=== PATIENT | female | born 1975 ===

== ENCOUNTER → 2020-12-29 17:07 | Outpatient (CLI) | payer OTHER, SELFPAY ==
--- NOTE | ~2020-12-29 | MM_ITS ---
EXAMINATION: MM screening dxe BI w josi HISTORY: Screening mammogram TECHNIQUE: Craniocaudal and mediolateral oblique 3-D tomosynthesis images were obtained and synthetic 2-D images were generated. CAD analysis was submitted and interpreted. COMPARISON: 05/15/2017 bilateral digital screening mammogram 05/16/2016 bilateral diagnostic digital mammogram 05/09/2016 bilateral digital screening mammogram BREAST PARENCHYMAL COMPOSITION: There are scattered areas of fibroglandular density. FINDINGS: Stable benign intramammary lymph nodes are noted on the right. There is no evidence of susp icious mass, calcification, or architectural distortion to suggest malignancy in either breast. There has been no suspicious interval change. IMPRESSION: 1. No mammographic evidence of malignancy. 2. Recommend routine screening mammography in one year. BI-RADS Category 2: Benign finding(s). Reviewed, dictated and finalized at location A.
== END ==
PROVIDERS: PCP Emergency Medicine; Visit Provider Emergency Medicine
DX: Z12.31 Encounter for screening mammogram for malignant neoplasm of breast (principal)
CPT/HCPCS: 77063; 77067

== ENCOUNTER 2025-03-06 08:57 | Emergency (ER) | payer OTHER, SELFPAY ==
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
--- OUTSIDE RECORDS SUMMARY | 2025-03-06 09:02 | XMS_ITS | Encounter Summary ---
Author Organization [facility] Healthcare Address [address] [place] [address] Care Team Providers Care Bedspread Cutter Hand Name Role Phone Ignacia Moran MD Primary Care Provi didier Encounter Details Date Type Department Care Team (Latest Contact Info) Description 01/14/2025 Results Follow-Up [facility] [address] [place] [address] Ghada Madison MD [address] [id number] CBC without differential Social History Tobacco Use Types Packs/Day Years Used Date Smoking Tobacco: Never Smokeless Tobacco: Never AUDIT-C Answer Date Recorded Q1: How often do you have a drink containing alcohol? Never 12/14/2024 Q2: How many drinks containi ng alcohol do you have on a typical day when you are drinking? Patient does not drink Q3: How often do you have si x or more drinks on one occasion? Never 12/14/2024 Personal Safety Answer Date Recorded Have you ever been in or are you currently in a harmful physical or emotional relationship or is someone making you feel afraid or unsafe? Denies 12/14/2024 Comments No Sex and Gender Information Value Date Recorded Sex Assigned at Not on file Legal Sex Female 6:56 PM [employer] Gender Identity Not on file Sexual Orientation Not on file documented as of this encounter Plan of Treatment Not on file documented as of this encounter Visit Diagnoses Not on filedocumented in this encounter Care Teams Bedspread Cutter Hand Relationship Specialty Start Date End Date Ignacia Moran MD PCP - General Family Medicine 04/14/22 documented as of this encounter
--- OUTSIDE RECORDS SUMMARY | 2025-03-06 09:02 | XMS_ITS | Encounter Summary ---
Author Organization [facility] Healthcare Address [address] [place] [address] Care Team Providers Care Assistant Community Director Name Role Phone Sophia Mai MD Primary Care Provider [phone] Reason for Visit * Diagnostic Imaging (Routine) - Pending Review Specialty Diagnoses / Procedures Referred By Makayla sahu Referred To Contact Procedures Breast Imaging Screening Outside Reference Transcribed Order, Provider Referral ID Status Reason Start Date Expiration Date V isits Requested Visits Authorized [id number] Pending Review 06/27/2024 07/27/2025 1 1 Encounter Details Date Type Department Care Team (Late st Contact Info) Description 12/29/2020 Hospital Encounter [facility] [address] [place], [place] [id number] Social History Tobacco Use Types Packs/Day Years [...] on file Legal Sex Female 6:56 PM [employer] Gender Identity Not on file Sexual Orientation Not on file documented as of this encounter Functional Status * Audit-C Score Answer Date of Assessment Author 0 12/14/2024 7:12 PM CDT Davonte Stewart RN * Question Answer Date of Assessment Author Q1: How often do you have a drink containing alcohol? Never 12/14/2024 7:12 PM CDT Shanti Stewart RN Q2: How many drinks containing alcohol do you have on a typical day when you are drinking? Patient does not drink 12/14/2024 7:12 PM CDT Shanti Stewart RN Q3: How often do you have six or more drinks on one occasion? Never 12/14/2024 7:12 PM CDT Shanti Stewart RN documented as of this encounter Plan of Treatment Not on file documented as of this encounter Procedures Procedure Name Priority Date/Time Associated Diagnosis Comments BREAST IMAGING MG SCREENING OUTSIDE REFERENCE Routine 12/29/2020 12:00 AM CDT documented in this encounter Results * Breast Imaging Screening Outside Reference (12/29/2020 12:00 AM CDT) Impressions [facility] - 06/27/2024 9:22 AM [employer] These images are for Reference purposes only and have not been reviewed by [facility] Radiology. There will be no report generated by a [facility] Radiologist. Narrative [facility] - 06/27/2024 9:22 AM [employer] EXAMINATION: Images For Reference Purposes Only us Provider Transcribed Order IMG MAMMO PROCEDURES Final Result [facility] documented in this encounter Visit Diagnoses Not on filedocumented in this encounter Additional Health Concerns Infection Onset Date Last Indicated Resolved Time COVID: Suspected 02/07/2022 02/07/2022 02/08/2022 3:05 AM CDT COVID: Suspected 02/07/2022 02/07/2022 02/08/2022 5:11 AM CDT COVID19 02/07/2022 02/07/2022 02/17/2022 3:05 AM CDT COVID: Recovered Comment:Added based on recent COVID infection. 02/17/2022 04/18/2022 06/17/2022 3:[address] documented as of this encounter Care Teams Assistant Community Director Relationship Specialty Start Date End Date Sophia Mai MD [address] [place] [address] PCP - General Internal Medicine 04/30/19 02/06/22 documented as of this encounter
--- OUTSIDE RECORDS SUMMARY | 2025-03-06 09:02 | XMS_ITS | Continuity of Care Document ---
Author Organization [facility] Address [address] [facility] [place] [address] [place] [address] Phone Care Team Providers Care Mechanical Integrity Specialist Name Role Phone Jaxon Collins MD Unavailable Unavailable Allergies, Adverse Reactions, Alerts Substance Reaction Status Criticality No Known Allergies Active No Inform ation Medications Medication Instructions Dosage Effective Dates (start - stop) Status Comments levofloxacin 250 mg tablet take 1 tablet by oral route every day 250 MG - Active phentermine 37.5 mg tablet take 1 tablet by oral route every day before breakfast 37.5 MG - Active Procedures Procedure Date OFFICE/OUTPATIENT VISIT, [facility] PREV VISIT, NEW, AGE 40-64 OFFICE/OUTPATIENT VISIT, [facility] Advance Directives Directive Yes / No Effective Date File Name No Information Encounters Encounter Description Practice Location Reason(s) For Visit Diagnoses Date Provider Providers Copied on Encounter [facility], [address] [employer] [place], [place], [id number], tel:[phone] [facility] Urinary tract infection Dennis Coates. [address], [place], [place], [id number] , [place]. tel:[phone] OFFICE/OUTPA TIENT VISIT, EST [facility], [address] [employer] [place], [place], [id number], tel:[phone] [facility] Medicine UTI1 (chief complaint) HTN (chief complaint) weight gain1 (chief complaint) Essential (primary) hypertensionAbnorma l weight gainUrinary tract infectionEncounter for oth screening for malignant neoplasm of breast 1 Dennis Coates. [address], [place], [place], [id number] , [place]. tel:[phone] PREV VISIT, NEW, AGE 40-64 [facility], [address], [place], [place], [id number], [place] tel:[phone] [facility] Medicine physical (chief complaint) Encounter for general adult medical exam w abnormal findingsEssential (primary) hypertensionAbnorma l weight gain 1 Dennis Coates. [address], [place], [place], [id number] , [place]. tel:[phone] Family History Family Member Type Diagnosis Age At Onset Mother Problem Obesity Brother Problem Alive and well Mother Problem Alive and well Father Problem prostate CA 70s Payers Payer name Insurance type Covered republican ID Authoriza tion(s) No Information Social History Type Description Quantity Date Captured Comments Alcohol Use Details Unknown Caffeine Use Details Unknown Tobacco Use Status No Information Smoking Status No Information Sex Female Chief Complaint And Reason For Visit No Information Plan Of Treatment Date Type Action Status Referral Ordered: MAMMOGRAM, SCREENING ordered History Of Present Illness Encounter Date Complaint History Of Prese nt Illness weight gain1 Pt is obese Pt f josef diet and exercise. Pt started biking recently. HTN Pt has not been checking her BP at home. Pt does have BP cuff at home .Pt denies any chest pain or headache. Pt has been diet and exercising. UTI1 Pt denies any dy suria. Pt feels urinary urgency without frequency. pt notices cloudy urine as well. Pt does drink a lot of water Pt denies any pelvic pain or flank pain physical Pt needs annual physical. 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 Pt is updated with all her shot. Pt has history of HTN and she took BP meds for a while but she stopped taking it on her own several years ago. Pt denies any chest pain or headache. her bp is borderline high today. Pt also gained tons of weight during the last several years. Pt has tried diet and exercise but unable to lose weight. Pt denies any other complaints Instructions Date Instruction Additional Infor ravindra No Information Assessments Type Assessment Date assessment Urinary tract infection
--- OUTSIDE RECORDS SUMMARY | 2025-03-06 09:02 | XMS_ITS | Clinical Summary ---
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 Name Role Phone Ignacia Moran MD Primary Care Provi didier Allergies Active Allergy Reactions Criticality Noted Date Comments Lisinopril Angioedema High 01/28/2023 Medications hydroCHLOROthiazid e (HYDRODIURIL) 25 mg tablet Take 1 tablet (25 mg total) by mouth daily 90 tablet 10/28/19 25 Active ibuprofen (ADVIL,MOTRIN) 600 mg tablet Take 1 tablet (600 mg total) by mouth every 6 (six) hours as needed for pain 30 tablet 12/05/19 25 Active Additional Information Patient not taking.Reported on 12/30/2024 polyethylene glycol (MIRALAX) 17 gram/dose bulk powder Take 17 g by mouth daily 510 g 12/05/19 25 Active Additional Information Patient not taking.Reported on 12/30/2024 ondansetron ODT (ZOFRAN-ODT) 4 mg disintegrating tablet Take 1 tablet (4 mg total) by mouth every 8 (eight) hours as needed for nausea or vomiting 5 tablet 12/05/19 25 Active Additional Information Patient not taking.Reported on 12/30/2024 polyethylene glycol (MIRALAX) 17 gram/dose bulk powder Take 17 g by mouth daily 255 g 12/14/19 25 Active Additional Information Patient not taking.Reported on 12/30/2024 acetaminophen 500 mg capsuleIndications :Fever,Pain Take 2 capsules (1,000 mg total) by mouth every 6 (six) hours 180 tablet 12/18/19 25 Active Additional Information Patient not taking.Reported on 12/30/2024 bisacodyL (DULCOLAX) 10 mg suppositoryIndicat ions:constipation Insert 1 suppository (10 mg total) into the rectum daily 12 suppository 12/18/19 25 Active Additional Information Patient not taking.Reported on 12/30/2024 oxyCODONE (ROXICODONE) 5 mg immediate release tabletIndications: Pain Take 1 tablet (5 mg total) by mouth every 4 (four) hours as needed for pain 15 tablet 12/18/19 25 Active Additional Information Patient not taking.Reported on 12/30/2024 polyethylene glycol (MIRALAX) 17 gram/dose bulk powderIndications: constipation Take 17 g by mouth daily 595 g 12/18/19 25 Active Additional Information Patient not taking.Reported on 12/30/2024 bisacodyl EC (DULCOLAX EC) 5 mg EC tabletIndications: constipation Take 1 tablet (5 mg total) by mouth daily 30 tablet 12/18/19 25 Active Additional Information Patient not taking.Reported on 12/30/2024 cyclobenzaprine (FLEXERIL) 5 mg tablet Take 1 tablet (5 mg total) by mouth 3 (three) times a day as needed for muscle spasms 30 tablet 12/18/19 25 Active Additional Information Patient not taking.Reported on 12/30/2024 gabapentin (NEURONTIN) 100 mg capsule Take 1 capsule (100 mg total) by mouth 3 (three) times a day 90 capsule 11 12/18/19 25 026 Active Additional Information Patient not taking.Reported on 12/30/2024 methocarbamoL (ROBAXIN) 500 mg tablet Take 1 tablet (500 mg total) by mouth 3 (three) times a day 30 tablet 12/18/19 25 Active Additional Information Patient not taking.Reported on 12/30/2024 ondansetron ODT (ZOFRAN-ODT) 4 mg disintegrating tabletIndications: Nausea and Vomiting Take 1 tablet (4 mg total) by mouth every 6 (six) hours as needed for nausea or vomiting 20 tablet 12/18/19 25 Active Additional Information Patient not taking.Reported on 12/30/2024 simethicone (MYLICON) 80 mg chewable tablet Take 1 tablet (80 mg total) by mouth 2 (two) times a day as needed for flatulence 30 tablet 12/18/19 25 Active Additional Information Patient not taking.Reported on 12/30/2024 Active Problems Problem Noted Date Diagnosed Date Vaginal cuff cellulitis 12/15/2024 Assessment & Plan (02/05/2025 5:37 PM CDT): Cuff well healed on exam today. Discussed continuing pelvic rest for 3 months total (through March). Return to work signed today. Patient will call if any issues or concerns, otherwise will plan to follow-up for routine WWE. All questions answered. Assessment & Plan (01/17/2025 5:02 PM CDT): Discussed repeat course of antibiotics considering small fluid collection at cuff on imaging and mild tenderness to palpation of cuff on exam, although overall cuff appears to be improving and patient's symptoms have been moving in the right direction. CTX administered in clinic today, and doxy/flagyl x 2 weeks sent to pharmacy. Plan for CBC today to evaluate for leukocytosis. Reviewed signs of worsening infection, otherwise will plan on following up for next appt scheduled 02/04. Plan for extended pelvic rest (3 mths) considering clinical course. Post-operative state 12/14/2024 Vaginal cuff dehiscence, initial encounter 12/14 Adenomyosis 08/20/2024 Abnormal uterine bleeding 07/02/2024 Assessment & Plan (10/20/2024 5:55 PM CDT): - Discussed that abnormal uterine bleeding and pain with menses likely in the setting of adenomyosis seen on pelvic US - TVUS 08/20: Uterus with a small fundal myoma and features suggesting adenomyosis, endometrial thickness measuring 6.4 mm, normal ovaries (R with corpus luteum) - Endometrial biopsy with benign endocervical mucosa, strips of unremarkable endocervical and squamous epithelium, insufficient endometrium for analysis but no evidence of dysplasia or malignancy. - TSH, prolactin within normal limits - Pap with +HRHPV non16/18, normal cytology Lab Results Component Value Date HGB 13.1 01/28/2023 - Previously reviewed the risks and benefits of medical management (hormonal contraception, TXA, NSAIDs) vs surgical management - Patient interested in hysterectomy for definitive management. Discussed would be a candidate for laparoscopic approach considering size of uterus. Discussed risks, benefits, alternatives, recovery expectations. All patient questions answered. - Discussed insufficient pathology from endometrial biopsy. Discussed overall, risk of malignancy is low considering risk factors and thin endometrial stripe on US, but cannot be excluded. Discussed option of repeat sampling for additional reassurance. Patient desires to defer additional sampling at this time as first biopsy was extremely uncomfortable. 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 Discussed would avoid LUQ entry, otherwise approach should be the same. Assessment & Plan (08/25/2024 1:54 PM CARTRIDGE GAUGER): - Discussed that abnormal uterine bleeding and pain with menses likely in the setting of adenomyosis seen on US today - TVUS 08/20: Uterus with a small fundal myoma and features suggesting adenomyosis, endometrial thickness measuring 6.4 mm, normal ovaries (R with corpus luteum) - Endometrial biopsy obtained today - TSH, prolactin within normal limits - Pap with +HRHPV non16/18, normal cytology Lab Results Component Value Date HGB 13.1 01/28/2023 - Previously reviewed the risks and benefits of medical management (hormonal contraception, TXA, NSAIDs) vs surgical management - Patient previously interested in ablation, although having both pain and bleeding symptoms from adenomyosis. Discussed that ablation may not help with pain symptoms. Now interested in hysterectomy for definitive management. Discussed would be a candidate for laparoscopic approach considering size of uterus. Discussed risks, benefits, alternatives, recovery expectations. 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) noted at time of bariatric surgery Assessment & Plan (07/02/2024 5:49 PM CARTRIDGE GAUGER): Abnormal uterine bleeding: - We discussed that cycles more often that 21 days or less is considered abnormal - Reviewed potential causes of AUB, specifically structural causes (polyps, adenomyosis, leiomyomas), malignancy, coagulopathies, ovulatory disorders, endometrial abnormalities, iatrogenic reasons - Workup recommended including TVUS, EMB, labwork - TVUS ordered - Endometrial biopsy: discussed obtaining at next visit - TSH, prolactin ordered - Pap obtained today Lab Results Component Value Date HGB 13.1 01/28/2023 - Reviewed the risks and benefits of medical management (hormonal contraception, TXA, NSAIDs) vs surgical management - Patient prefers to proceed with Aygestin 5mg daily, with further discussion of management pending TVUS and biopsy results. She is ultimately interested in an endometrial ablation. Morbid (severe) obesity due to excess calories 1 08/27/2021 No diagnosis on [place] I 05/25/2022 Morbid obesity 05/25/2022 GERD (gastroesophageal reflux disease) Primary hypertension 05/01/2022 Primary osteoarthritis of both knees 05/01/2022 BMI 45.0-49.9, adult 04/21/2022 Encounters Date Type Department Care Team Description 02/04/2025 3:45 PM CDT Office Visit [facility] Obstetrics and Gynecology [address] [place] [address] 7th Floor [address] [place] [phone] Ghada Madison MD Vaginal cuff cellulitis (Primary Dx) 01/14/2025 1:05 PM CDT Lab [facility] [address] [place] [id number] Vaginal cuff cellulitis; Abnormal uterine bleeding 01/14/2025 12:15 PM CDT Office Visit [facility] Obstetrics and Gynecology [address] [place] [address] 7th Floor [address] [place] [phone] Ghada Madison MD Vaginal cuff cellulitis (Primary Dx) 01/14/2025 Results Follow-Up [address] [phone] Ghada Madison MD CBC without differential 01/13/[address] [phone] Ghada Madison MD 01/13/2025 Results Follow-Up [address] [place] [address] Pelvis W Contrast 01/12/2025 3:24 PM CDT - 01/12/2025 11:59 PM CDT Hospital Encounter [facility] [address] [place] [address] Post-operative state; Pelvic pain Discharge Disposition: Discharge to home or self care 01/06/2025 Orders Only [facility] Obstetrics and Gynecology [address] [place] [address] 7th Floor [address] [place] [address] Ghada Madison MD Post-operative state (Primary Dx); Pelvic pain 12/30/2024 12:45 PM CDT Office Visit [facility] Obstetrics and Gynecology [address] [place] [address] 7th Floor [address] [place] [address] Ghada Madison MD Post-operative state (Primary Dx) 12/23/2024 Telephone [facility] Obstetrics and Gynecology [address] [place] [address] 7th [address] [place] [address] Alonso Lugo, CASSIDY Appointment 12/18/2024 Results Follow-Up [address] [phone] Ghada Madison MD Aerobic and anaerobic culture and gram stain Abscess Vaginal 12/14/2024 10:14 PM CDT Anesthesia Event [facility] Operating Room [address] [place] [address] Shirlene Becker MD Gillespie, Julie Beth Marie, MD 12/14/2024 8:00 PM CDT - 12/14/2024 10:15 PM CDT Surgery [facility] Operating Room [address] [place] [address] Ghada Madison MD EXAM UNDER ANESTHESIA WITH VAGINAL CUFF REPAIR 12/14/2024 12:07 PM CDT - 12/17/2024 2:51 PM CDT Hospital Encounter [facility] [address] [place] [address] Rebeca Atkins MD Mitchell, Nicky Singh MD Vaginal cuff dehiscence, initial encounter (Primary Dx); Post-operative state Discharge Disposition: Discharge to home or self care 12/12/2024 5:34 PM CDT - 12/13/2024 1:10 AM CDT Hospital Encounter [facility] [address] [place] [address] Ghada Madison MD Abnormal uterine bleeding (Primary Dx) Discharge Disposition: Discharge to home or self care 12/12/2024 Telephone [facility] Obstetrics and Gynecology [facility] 7th Floor [address] [place] [address] Alonso Lugo RN Post-op 12/04/2024 11:16 AM CDT Anesthesia Event [facility] Operating Room [address] [place] [address] Sayda Lao DO Montgomery, Andrea J., NP 12/04/2024 11:00 AM CDT - 12/04/2024 3:10 PM CDT Surgery [facility] Operating Room [address] [place] [address] Ghada Madison MD LAPAROSCOPIC TOTAL HYSTERECTOMY 12/04/2024 9:07 AM CDT - 12/04/2024 6:58 PM CDT Hospital Encounter [facility] Operating Room [address] [place] [address] Ghada Madison MD Abnormal uterine bleeding; Adenomyosis Discharge Disposition: Discharge to home or self care from Last 3 Months Immunizations Immunization Administration Dates Next Due Hep B Vaccine 05/30/2021,12/03/2020,10/29/2020 Influenza, Quadrivalent, Spl it, Intramuscular 10/29/2020 Influenza, Trivalent, IM (MDV) 05/30/2021 Influenza, Trivalent, Preser vative Free, Intramuscular 05/05/2024 MMR 12/03/2020,10/29/2020 PPD TEST 05/05/2024,07/09/2023,10/03/2022 Tdap 10/29/2020 Varicella 12/03/2020,10/29/2020 Surgical History Surgery Date Site/Laterality Comments DILATION AND CURETTAGE OF UTERUS APPENDECTOMY 06/27 ABDOMINAL SURGERY 06/27 Gastric Sleeve LAPAROSCOPIC HYSTERECTOMY HYSTERECTOMY Medical History Medical History Date Comments Arthritis 2019 GERD (gastroesophageal reflux disease) 2015 Morbid obesity (HCC) 2012 Obesity 2004 Hypertension Family History Medical History Relation Name Comments Gout Father Hypertension Mother Anesthesia problems Neg Hx Relation Name Status Comments Father Mother Social History Tobacco Use Types Packs/Day Years Used Date Smoking Tobacco: Never Smokeless Tobacco: Never Tobacco Cessation:Counseling Given: Not Answered AUDIT-C Answer Date Recorded Q1: How often [...] on file Legal Sex Female 6:56 PM CARTRIDGE GAUGER Gender Identity Not on file Sexual Orientation Not on file Obstetrics History Para Term AB IAB SAB Ectopic Multiple Livin g Live Births 2 2 2 2 2 Date Outcome GA Total Labor Labor/2nd/3rd Weight Sex Type Anes PTL Monica A1 A5 Name Clin 2003 Term 37w 0d M Vagina l Livin g Complications:High blood pre ssure 2007 Term 37w 0d M Vagina l Livin g Complications:High blood pre ssure Last Filed Vital Signs Vital Sign Reading Time Taken Comments Blood Pressure 156/106 02/04/2025 3:33 PM CDT Pulse 71 01/14/2025 12:18 PM CDT Temperature 36.8 C (98.3 F) 01/14/2025 12:18 PM CDT Respiratory Rate 18 12/17/2024 8:10 AM CDT Oxygen Saturation 98% 12/17/2024 8:10 AM CDT Inhaled Oxygen Concentration - - Weight 90.8 kg (200 lb 3.2 oz) 02/04/2025 3:33 P M CDT Height 165.1 cm (5' 5) 02/04/2025 3:33 PM CDT Body Mass Index 33.32 02/04/2025 3:33 PM CDT Plan of Treatment Health Maintenance Due Date Last Done Comments Colon Cancer Screening-Colonoscopy 1977 Depression Screening 1977 Hepatitis C Screening 1977 Regular Well Visit/Exam 18-64 1995 Covid-19 Vaccine (2 - season) 2024 10/14/2020 Influenza Vaccine (#1) 2025 , 05/30/2021, 10/29/2020 Breast Cancer Screening-Mammogram 07/17/2025 07/17/2024, 12/29/2020 DTaP/Tdap/Td Vaccine (2 - Td or Tdap) 10/29/2030 10/29/2020 Hepatitis B Screening Completed 05/30/2021 , 12/03/2020, 10/29/2020 Cervical Cancer Screening Discontinued 2023, 07/02/2024 Pneumococcal vaccine <65 Aged Out No longer eligible based on patient's age to complete this topic Procedures Procedure Name Priority Date/Time Associated Diagnosis Comments EGFR Routine 01/14/2025 1:09 PM CDT Abnormal uterine bleeding COMPREHENSIVE METABOLIC PANEL Routine 01/14/2025 1:09 PM CDT Abnormal uterine bleeding CBC WITHOUT DIFFERENTIAL Routine 01/14/2025 1:09 PM CDT Vaginal cuff cellulitis CT PELVIS W CONTRAST Schedule Routine, Read Routine (OP Routine) 01/12/2025 3:52 PM CDT Post-operative state Pelvic pain EGFR Routine 12/17/2024 5:48 AM CDT COMPREHENSIVE METABOLIC PANEL Routine 12/17/2024 5:48 AM CDT CBC WITHOUT DIFFERENTIAL Routine 12/17/2024 5:48 AM CDT EGFR Routine 12/16/2024 4:46 AM CDT COMPREHENSIVE METABOLIC PANEL Routine 12/16/2024 4:46 AM CDT CBC WITHOUT DIFFERENTIAL Routine 12/16/2024 4:46 AM CDT US RENAL LIMITED IP Routine 12/15/2024 3:57 PM CDT EGFR Routine 12/15/2024 4:49 AM CDT COMPREHENSIVE METABOLIC PANEL Routine 12/15/2024 4:49 AM CDT CBC WITHOUT DIFFERENTIAL Routine 12/15/2024 4:49 AM CDT AEROBIC AND ANAEROBIC CULTURE AND GRAM STAIN Routine 12/14/2024 11:20 PM CDT EXAM UNDER ANESTHESIA 12/14/2024 10:16 PM CDT Vaginal cuff dehiscence, initial encounter BLOOD CULTURE STAT 12/14/2024 5:08 PM CDT BLOOD CULTURE STAT 12/14/2024 5:08 PM CDT URINALYSIS, MICROSCOPIC ONLY Routine 12/14/2024 3:34 PM CDT URINALYSIS AND REFLEX TO MICROSCOPIC AND CULTURE Routine 12/14/2024 3:34 PM CDT EGFR Timed 12/14/2024 1:39 PM CDT LACTATE Timed 12/14/2024 1:39 PM CDT COMPREHENSIVE METABOLIC PANEL Timed 12/14/2024 1:39 PM CDT CBC WITHOUT DIFFERENTIAL Timed 12/14/2024 1:39 PM CDT TYPE AND SCREEN Timed 12/14/2024 1:[address] CHEST PE ABDOMEN PELVIS W CONTRAST ED Urgent/IP Urgent 12/12/2024 9:46 PM CDT HEPATIC FUNCTION PANEL Routine 12/12/2024 7:32 PM CDT EGFR Routine 12/12/2024 7:32 PM CDT BASIC METABOLIC PANEL Routine 12/12/2024 7:32 PM CDT CBC WITHOUT DIFFERENTIAL STAT 12/12/2024 7:32 PM CDT POCT URINALYSIS (CLINITEK) Routine 12/12/2024 6:01 PM CDT SURGICAL PATHOLOGY Routine 12/04/2024 1: 44 PM CDT Abnormal uterine bleeding Adenomyosis TX AN PROCEDURE PLACEHOLDER Routine 12/04/2024 11:51 AM CDT TX AN ELECTIVE ENDOTRACHEAL AIRWAY Routine 12/04/2024 11:51 AM CDT LAPAROSCOPIC URETEROLYSIS 12/04/2024 11:20 AM CDT Abnormal uterine bleeding Adenomyosis LAPAROSCOPIC EXCISION ENDOMETRIOSIS 12/04/2024 11:20 AM CDT Abnormal uterine bleeding Adenomyosis LAPAROSCOPIC EXCISION ENDOMETRIOSIS 12/04/2024 11:20 AM CDT Abnormal uterine bleeding Adenomyosis LAPAROSCOPIC URETEROLYSIS 12/04/2024 11:20 AM CDT Abnormal uterine bleeding Adenomyosis CYSTOSCOPY 12/04/2024 11:20 AM CDT Abnormal uterine bleeding Adenomyosis EXAM UNDER ANESTHESIA 12/04/2024 11:20 AM CDT Abnormal uterine bleeding Adenomyosis LAPAROSCOPIC SALPINGECTOMY 12/04/2024 11:20 AM CDT Abnormal uterine bleeding Adenomyosis LAPAROSCOPIC TOTAL HYSTERECTOMY 12/04/2024 11:20 AM CDT Abnormal uterine bleeding Adenomyosis TYPE AND SCREEN STAT 12/04/2024 9:57 AM CDT SCREENING MAMMOGRAM BILATERAL W SANTOS Schedule Routine, Read Routine (OP Routine) 07/17/2024 8:01 AM CARTRIDGE GAUGER Screening mammogram, encounter for HIGH RISK HPV DNA DETECTION WITH GENOTYPING Routine 07/02/2024 5:33 PM CARTRIDGE GAUGER Abnormal uterine bleeding from Last 3 Months or Most Recently Relevant to Health Maintenance Results * eGFR (01/14/2025 1:09 PM CDT) eGFR >90 >=60 mL/min/1. 73 m2 Comment: Interpretive Data Reference Interval Normal >/= 90 mL/min/1.73m2 Mildly decreased* 60 - 89 mL/min/1.73m2 Mildly to moderately decreased 45 - 59 mL/min/1.73m2 Moderately to severely decreased 30 - 44 mL/min/1.73m2 Severely decreased 15 - 29 mL/min/1.73m2 Kidney Failure < 15 mL/min/1.73m2 *Relative to young adult level Estimated glomerular filtration rate is determined by the 2020 CKD-EPI equation recommended by the National Kid[employer] (A Unifying Approach to GFR Estimation: Recommendations of the NKF-ASK Task Force on Reassessing the Inclusion of Race in Diagnosing Kidney Disease, JASN 2020). The CKD-EPI equation should not be used for patients with unstable renal function and has not been validated in children and those over 70. Current interpretive data was last reviewed 2021. Blood 01/14/2025 1:09 PM CDT 01/14/2025 1:38 PM CDT Ghada Madison MD LAB BLOOD ORDERABLES Final Re sult [facility] [place] [address] * CBC without differential (01/14/2025 1:09 PM CDT) WBC 4.42 3.80 - 9.90 K/cumm Hgb 12.2 11.9 - 15.5 g/dL [facility] Hct 36.0 35.6 - 45.5 % [facility] Plt 219 150 - 400 K/cumm [facility] MPV 10.0 9.1 - 12.3 fL [facility] RBC 4.28 3.90 - 5.20 M/cumm [facility] MCV 84.1 81.3 - 96.4 fL [facility] MCH 28.5 27.1 - 33.3 pg [facility] MCHC 33.9 32.3 - 35.7 g/dL [facility] RDW CV 14.6 11.1 - 14.9 % [facility] RDW SD 45.0 35.7 - 48.1 fL [facility] NRBC abs 0.00 0.00 - 0.01 K/cumm [facility] Blood 01/14/2025 1:09 PM CDT 01/14/2025 1:38 PM CDT Ghada Madison MD LAB BLOOD ORDERABLES Final Re sult [facility] [place] [address] * (ABNORMAL) Comprehensive metabolic panel (01/14/2025 1:09 PM CDT) Sodium 141 135 - 145 mmol/L Potassium, pl 4.1 3.3 - 4.9 mmol/L [facility] Chloride 107 97 - 110 mmol/L [facility] CO2 30 22 - 32 mmol/L [facility] Anion gap 4 2 - 15 mmol/L [facility] BUN 5(L) 6 - 25 mg/dL [facility] Creatinine 0.67 0.60 - 1.10 mg/dL [facility] Glucose 87 70 - 199 mg/dL [facility] Comment: Interpretive Data Fasting glucose >/= 126 mg/dl is diagnostic for diabetes. Fasting is defined as no caloric intake for at least 8 hours. Fasting glucose between 100 mg/dl to 125 mg/dl is diagnostic of prediabetes. In a patient with classic symptoms of hyperglycemia or hyperglycemic crisis, a random glucose >/= 200 mg/dl is diagnostic for diabetes. In the absence of unequivocal hyperglycemia, results should be confirmed by repeat testing. The classification and Diagnosis of Diabetes Diabetes Care 202; 46: S19-S40. Current interpretive data was last revised 2022. Calcium 9.5 8.5 - 10.3 mg/dL [facility] Bilirubin, total 0.5 0.1 - 1.2 mg/dL [facility] Protein, pl 7.6 6.5 - 8.5 g/dL [facility] Albumin 3.9 3.5 - 5.0 g/dL [facility] Alk phos 52 40 - 130 Units/L [facility] ALT 11 7 - 45 Units/L [facility] AST 14 10 - 45 Units/L [facility] Blood 01/14/2025 1:09 PM CDT 01/14/2025 1:38 PM CDT us Ghada Madison MD LAB BLOOD ORDERABLES Final Re sult [facility] [place] [address] * CT Pelvis W Contrast (01/12/2025 3:52 PM CDT) Anatomical Region Laterality Modality Body N/A Computed Tomogra phy 01/12/2025 4:04 PM CDT Impressions 01/12/2025 4:04 PM CDT Postsurgical changes of hysterectomy and bilateral salpingectomy with a peripherally enhancing 1.9 cm fluid collection at the leftward aspect of the vaginal cuff. There is interval resolution of small volume hemoperitoneum from 12/12/2024. Electronically signed by: Merissa Menon M.D. Narrative 01/12/2025 4:04 PM CDT EXAMINATION: CT PELVIS W CONTRAST HISTORY: 49-year-old with concern for cellulitis of the vaginal cuff. Patient status post hysterectomy and salpingectomy with excision of endometriosis on 12/04/2024 with exam under anesthesia for vaginal cuff dehiscence on 12/14/2024 with multiple small subcentimeter defects and no evidence of complete dehiscence. TECHNIQUE: Transaxial computed tomographic images of the pelvis were obtained with intravenous contrast according to the standard protocol after the uneventful administration of 66 mL Opti-Ray 350 intravenous contrast. COMPARISON: CT 12/12/2024 FINDINGS: There are postsurgical changes of hysterectomy and bilateral salpingectomy. There is a fluid attenuation 3.63 left adnexal cyst, slightly increased in size from prior examination (series 2, image 54). The right adnexa is normal. There is a small fluid collection seen at the vaginal cuff that measures 1.9 x 1.7 cm (series 2, image 59). There is no there is no pelvic free fluid, with interval resolution of hemoperitoneum from 12/12/2024. There is no evidence of bowel obstruction. The imaged: And small bowel are normal in caliber. The distal infrarenal abdominal aorta and iliac arteries are patent. The common femoral and proximal superficial femoral profunda femoris arteries are patent. No lymphadenopathy. Urinary bladder decompressed. Procedure Note Merissa Menon MD - 01/12/2025 EXAMINATION: CT PELVIS W CONTRAST HISTORY: 49-year-old with concern for cellulitis of the vaginal cuff. Patient status post hysterectomy and salpingectomy with excision of endometriosis on 12/04/2024 with exam under anesthesia for vaginal cuff dehiscence on 12/14/2024 with multiple small subcentimeter defects and no evidence of complete dehiscence. TECHNIQUE: Transaxial computed tomographic images of the pelvis were obtained with intravenous contrast according to the standard protocol after the uneventful administration of 66 mL Opti-Ray 350 intravenous contrast. COMPARISON: CT 12/12/2024 FINDINGS: There are postsurgical changes of hysterectomy and bilateral salpingectomy. There is a fluid attenuation 3.63 left adnexal cyst, slightly increased in size from prior examination (series 2, image 54). The right adnexa is normal. There is a small fluid collection seen at the vaginal cuff that measures 1.9 x 1.7 cm (series 2, image 59). There is no there is no pelvic free fluid, with interval resolution of hemoperitoneum from 12/12/2024. There is no evidence of bowel obstruction. The imaged: And small bowel are normal in caliber. The distal infrarenal abdominal aorta and iliac arteries are patent. The common femoral and proximal superficial femoral profunda femoris arteries are patent. No lymphadenopathy. Urinary bladder decompressed. IMPRESSION: Postsurgical changes of hysterectomy and bilateral salpingectomy with a peripherally enhancing 1.9 cm fluid collection at the leftward aspect of the vaginal cuff. There is interval resolution of small volume hemoperitoneum from 12/12/2024. Electronically signed by: Merissa Menon M.D. Ghada Madison MD IMG CT PROCEDURES Final Resul t * eGFR (12/17/2024 5:48 AM CDT) eGFR >90 >=60 mL/min/1. 73 m2 Comment: Interpretive Data Reference Interval Normal >/= 90 mL/min/1.73m2 Mildly decreased* 60 - 89 mL/min/1.73m2 Mildly to moderately decreased 45 - 59 mL/min/1.73m2 Moderately to severely decreased 30 - 44 mL/min/1.73m2 Severely decreased 15 - 29 mL/min/1.73m2 Kidney Failure < 15 mL/min/1.73m2 *Relative to young adult level Estimated glomerular filtration rate is determined by the 2020 CKD-EPI equation recommended by the National Kidney Foundation (A Unifying Approach to GFR Estimation: Recommendations of the NKF-ASK Task Force on Reassessing the Inclusion of Race in Diagnosing Kidney Disease, JASN 2020). The CKD-EPI equation should not be used for patients with unstable renal function and has not been validated in children and those over 70. Current interpretive data was last reviewed 2021. Blood 12/17/2024 5:48 AM CDT 12/17/2024 6:17 AM CDT Rebeca Atkins MD LAB BLOOD ORDERABLES Final Result [facility] Department of Laboratories [place], [place] [id number] * (ABNORMAL) CBC without differential (12/17/2024 5:48 AM CDT) WBC 7.66 3.80 - 9.90 K/cumm Hgb 8.7(L) 11.9 - 15.5 g/dL [facility] Hct 26.1(L) 35.6 - 45.5 % [facility] Plt 411(H) 150 - 400 K/cumm [facility] MPV 9.3 9.1 - 12.3 fL [facility] RBC 2.99(L) 3.90 - 5.20 M/cumm [facility] MCV 87.3 81.3 - 96.4 fL [facility] MCH 29.1 27.1 - 33.3 pg [facility] MCHC 33.3 32.3 - 35.7 g/dL [facility] RDW CV 13.6 11.1 - 14.9 % [facility] RDW SD 42.1 35.7 - 48.1 fL [facility] NRBC abs 0.00 0.00 - 0.01 K/cumm [facility] Blood 12/17/2024 5:48 AM CDT 12/17/2024 6:17 AM CDT us Rebeca Atkins MD LAB BLOOD ORDERABLES Final Result [facility] [place] [address] * (ABNORMAL) Comprehensive metabolic panel (12/17/2024 5:48 AM CDT) Sodium 141 135 - 145 mmol/L Potassium, pl 3.8 3.3 - 4.9 mmol/L [facility] Chloride 104 97 - 110 mmol/L [facility] CO2 27 22 - 32 mmol/L [facility] Anion gap 10 2 - 15 mmol/L [facility] BUN 4(L) 6 - 25 mg/dL [facility] Creatinine 0.63 0.60 - 1.10 mg/dL [facility] Glucose 91 70 - 199 mg/dL [facility] Comment: Interpretive Data Fasting glucose >/= 126 mg/dl is diagnostic for diabetes. Fasting is defined as no caloric intake for at least 8 hours. Fasting glucose between 100 mg/dl to 125 mg/dl is diagnostic of prediabetes. In a patient with classic symptoms of hyperglycemia or hyperglycemic crisis, a random glucose >/= 200 mg/dl is diagnostic for diabetes. In the absence of unequivocal hyperglycemia, results should be confirmed by repeat testing. The classification and Diagnosis of Diabetes Diabetes Care 2021; 46: S19-S40. Current interpretive data was last revised 2022. Calcium 8.7 8.5 - 10.3 mg/dL [facility] Bilirubin, total 0.9 0.1 - 1.2 mg/dL [facility] Protein, pl 7.1 6.5 - 8.5 g/dL [facility] Albumin 3.1(L) 3.5 - 5.0 g/dL [facility] Alk phos 53 40 - 130 Units/L [facility] ALT 7 7 - 45 Units/L [facility] AST 19 10 - 45 Units/L [facility] Blood 12/17/2024 5:48 AM CDT 12/17/2024 6:17 AM CDT Rebeca Atkins MD LAB BLOOD ORDERABLES Final Result [facility] [place] [address] * eGFR (12/16/2024 4:46 AM CDT) eGFR >90 >=60 mL/min/1. 73 m2 Comment: Interpretive Data Reference Interval Normal >/= 90 mL/min/1.73m2 Mildly decreased* 60 - 89 mL/min/1.73m2 Mildly to moderately decreased 45 - 59 mL/min/1.73m2 Moderately to severely decreased 30 - 44 mL/min/1.73m2 Severely decreased 15 - 29 mL/min/1.73m2 Kidney Failure < 15 mL/min/1.73m2 *Relative to young adult level Estimated glomerular filtration rate is determined by the 2020 CKD-EPI equation recommended by the National Kidney Foundation (A Unifying Approach to GFR Estimation: Recommendations of the NKF-ASK Task Force on Reassessing the Inclusion of Race in Diagnosing Kidney Disease, JASN 2020). The CKD-EPI equation should not be used for patients with unstable renal function and has not been validated in children and those over 70. Current interpretive data was last reviewed 2021. Blood 12/16/2024 4:46 AM CDT 12/16/2024 5:48 AM CDT us Rebeca Atkins MD LAB BLOOD ORDERABLES Final Result [facility] [place] [address] * (ABNORMAL) CBC without differential (12/16/2024 4:46 AM CDT) WBC 7.34 3.80 - 9.90 K/cumm Hgb 7.6(L) 11.9 - 15.5 g/dL [facility] Hct 22.5(L) 35.6 - 45.5 % [facility] Plt 365 150 - 400 K/cumm [facility] MPV 9.3 9.1 - 12.3 fL [facility] RBC 2.60(L) 3.90 - 5.20 M/cumm [facility] MCV 86.5 81.3 - 96.4 fL [facility] MCH 29.2 27.1 - 33.3 pg [facility] MCHC 33.8 32.3 - 35.7 g/dL [facility] RDW CV 13.5 11.1 - 14.9 % [facility] RDW SD 42.2 35.7 - 48.1 fL [facility] NRBC abs 0.00 0.00 - 0.01 K/cumm [facility] Blood 12/16/2024 4:46 AM CDT 12/16/2024 5:48 AM CDT us Rebeca Atkins MD LAB BLOOD ORDERABLES Final Result [facility] [place] [address] * (ABNORMAL) Comprehensive metabolic panel (12/16/2024 4:46 AM CDT) Pathologist [facility] [place] Sodium 141 135 - 145 mmol/L Potassium, pl 3.7 3.3 - 4.9 mmol/L [facility] Chloride 105 97 - 110 mmol/L [facility] CO2 29 22 - 32 mmol/L [facility] Anion gap 7 2 - 15 mmol/L [facility] BUN 6 6 - 25 mg/dL [facility] Creatinine 0.66 0.60 - 1.10 mg/dL [facility] Glucose 95 70 - 199 mg/dL [facility] Comment: Interpretive Data Fasting glucose >/= 126 mg/dl is diagnostic for diabetes. Fasting is defined as no caloric intake for at least 8 hours. Fasting glucose between 100 mg/dl to 125 mg/dl is diagnostic of prediabetes. In a patient with classic symptoms of hyperglycemia or hyperglycemic crisis, a random glucose >/= 200 mg/dl is diagnostic for diabetes. In the absence of unequivocal hyperglycemia, results should be confirmed by repeat testing. The classification and Diagnosis of Diabetes Diabetes Care 2021; 46: S19-S40. Current interpretive data was last revised 2022. Calcium 8.4(L) 8.5 - 10.3 mg/dL [facility] Bilirubin, total 0.9 0.1 - 1.2 mg/dL [facility] Protein, pl 6.7 6.5 - 8.5 g/dL [facility] Albumin 3.0(L) 3.5 - 5.0 g/dL [facility] Alk phos 48 40 - 130 Units/L [facility] ALT 11 7 - 45 Units/L [facility] AST 18 10 - 45 Units/L [facility] Blood 12/16/2024 4:46 AM CDT 12/16/2024 5:48 AM CDT us Rebeca Atkins MD LAB BLOOD ORDERABLES Final Result [facility] [place] [address] * US Kidney Limited (12/15/2024 3:57 PM CDT) Anatomical Region Laterality Modality Kidney N/A Ultrasound 12/15/2024 4:24 PM CDT Impressions 12/15/2024 4:34 PM CDT Previously indeterminate left mid to lower renal lesion seen on the recent CT exam corresponds to a small renal cyst. Dictated by: North Aparicio M.D. The radiology attending physician has personally reviewed this study, and had reviewed and/or edited this written report and agrees with it. Electronically signed by: Rachna Álvarez M.D. Narrative 12/15/2024 4:34 PM CDT EXAMINATION: LIMITED RENAL SONOGRAM HISTORY: 49-year-old found to have indeterminate left renal lesion on recent CT exam COMPARISON: CT12/12/2024 FINDINGS: The previously seen lesion in the left mid to lower pole of the kidney measures 1.2 cm and appears anechoic with subtle posterior acoustic enhancement and no color Doppler flow, consistent with a cyst. There is an additional 2.3 cm parapelvic cyst. Procedure Note Rachna Álvarez MD - 12/15/2024 EXAMINATION: LIMITED RENAL SONOGRAM HISTORY: 49-year-old found to have indeterminate left renal lesion on recent CT exam COMPARISON: CT12/12/2024 FINDINGS: The previously seen lesion in the left mid to lower pole of the kidney measures 1.2 cm and appears anechoic with subtle posterior acoustic enhancement and no color Doppler flow, consistent with a cyst. There is an additional 2.3 cm parapelvic cyst. IMPRESSION: Previously indeterminate left mid to lower renal lesion seen on the recent CT exam corresponds to a small renal cyst. Dictated by: North Aparicio M.D. The radiology attending physician has personally reviewed this study, and had reviewed and/or edited this written report and agrees with it. Electronically signed by: Rachna Álvarez M.D. us Rebeca Atkins MD IMG US PROCEDURES Fin al Result * eGFR (12/15/2024 4:49 AM CDT) eGFR >90 >=60 mL/min/1. 73 m2 Comment: Interpretive Data Reference Interval Normal >/= 90 mL/min/1.73m2 Mildly decreased* 60 - 89 mL/min/1.73m2 Mildly to moderately decreased 45 - 59 mL/min/1.73m2 Moderately to severely decreased 30 - 44 mL/min/1.73m2 Severely decreased 15 - 29 mL/min/1.73m2 Kidney Failure < 15 mL/min/1.73m2 *Relative to young adult level Estimated glomerular filtration rate is determined by the 2020 CKD-EPI equation recommended by the National Kidney Foundation (A Unifying Approach to GFR Estimation: Recommendations of the NKF-ASK Task Force on Reassessing the Inclusion of Race in Diagnosing Kidney Disease, JASN 2020). The CKD-EPI equation should not be used for patients with unstable renal function and has not been validated in children and those over 70. Current interpretive data was last reviewed 2021. Blood 12/15/2024 4:49 AM CDT 12/15/2024 5:34 AM CDT us Rebeca Atkins MD LAB BLOOD ORDERABLES Final Result [facility] Department [place] [address] * (ABNORMAL) CBC without differential (12/15/2024 4:49 AM CDT) WBC 7.79 3.80 - 9.90 K/cumm Hgb 7.2(L) 11.9 - 15.5 g/dL [facility] Hct 21.6(L) 35.6 - 45.5 % [facility] Plt 316 150 - 400 K/cumm [facility] MPV 9.5 9.1 - 12.3 fL [facility] RBC 2.50(L) 3.90 - 5.20 M/cumm [facility] MCV 86.4 81.3 - 96.4 fL [facility] MCH 28.8 27.1 - 33.3 pg [facility] MCHC 33.3 32.3 - 35.7 g/dL [facility] RDW CV 13.3 11.1 - 14.9 % [facility] RDW SD 41.3 35.7 - 48.1 fL [facility] NRBC abs 0.00 0.00 - 0.01 K/cumm [facility] Blood 12/15/2024 4:49 AM CDT 12/15/2024 6:43 AM CDT us Rebeca Atkins MD LAB BLOOD ORDERABLES Final Result [facility] [place] [address] * (ABNORMAL) Comprehensive metabolic panel (12/15/2024 4:49 AM CDT) Sodium 142 135 - 145 mmol/L Potassium, pl 3.6 3.3 - 4.9 mmol/L [facility] Chloride 105 97 - 110 mmol/L [facility] CO2 28 22 - 32 mmol/L [facility] Anion gap 9 2 - 15 mmol/L [facility] BUN 7 6 - 25 mg/dL [facility] Creatinine 0.72 0.60 - 1.10 mg/dL [facility] Glucose 94 70 - 199 mg/dL [facility] Comment: Interpretive Data Fasting glucose >/= 126 mg/dl is diagnostic for diabetes. Fasting is defined as no caloric intake for at least 8 hours. Fasting glucose between 100 mg/dl to 125 mg/dl is diagnostic of prediabetes. In a patient with classic symptoms of hyperglycemia or hyperglycemic crisis, a random glucose >/= 200 mg/dl is diagnostic for diabetes. In the absence of unequivocal hyperglycemia, results should be confirmed by repeat testing. The classification and Diagnosis of Diabetes Diabetes Care 2021; 46: S19-S40. Current interpretive data was last revised 2022. Calcium 8.2(L) 8.5 - 10.3 mg/dL [facility] Bilirubin, total 1.2 0.1 - 1.2 mg/dL [facility] Protein, pl 6.6 6.5 - 8.5 g/dL [facility] Albumin 2.9(L) 3.5 - 5.0 g/dL [facility] Alk phos 46 40 - 130 Units/L [facility] ALT 8 7 - 45 Units/L [facility] AST 18 10 - 45 Units/L [facility] Blood 12/15/2024 4:49 AM CDT 12/15/2024 5:34 AM CDT Rebeca Atkins MD LAB BLOOD ORDERABLES Final Result [facility] [place] [address] * (ABNORMAL) Aerobic and anaerobic culture and gram stain Abscess Vaginal (12/14/2024 11:20 PM CDT) Direct Specimen Exam Stain: Rare polymorphonuclear leukocytes seen. Few Gram Positive Bacilli Rare Gram Negative Bacilli Report Final Report: Moderate Escherichia coli Rare Finegoldia magna (.) [facility] Organism ESCHERICHIA COLI [facility] Organism FINEGOLDIA MAGNA [facility] Abscess (Vaginal) 12/14/2024 11:20 PM CDT 12/15/2024 8:38 AM CDT Narrative [facility] - 12/18/2024 10:27 AM CDT Vaginal cuff fluid collection Specimen received on an ESwab. Testing performed by [facility] ([phone]) Specimens submitted from normally sterile body sites will have all bacterial morphotypes identified. Specimens that contain grossly mixed payton and/or are from body sites that are not normally sterile will be examined for Staphylococcus aureus, Pseudomonas aeruginosa, beta-hemolytic strep, vancomycin-resistant Enterococcus, Bacteroides, Parabacteroides, Clostridium perfringens and fungus. If any of these are isolated, the organism will be reported. Current interpretive data was last revised on 2019. Organism Antibiotic Method Susceptibility Escherichia coli Ampicillin INTERPRETATION Resistant Escherichia coli Cefazolin INTERPRETATION Resistant Escherichia coli Gentamicin INTERPRETATION Susceptible Escherichia coli Ampicillin with Sulbactam INTERPRETAT ION Resistant Escherichia coli Trimethoprim with Sulfamethoxazole IN TERPRETATION Susceptible Escherichia coli Meropenem INTERPRETATION Susceptible Escherichia coli Cefepime INTERPRETATION Susceptible Escherichia coli Ciprofloxacin INTERPRETATION Susceptible Escherichia coli Ceftazidime INTERPRETATION Susceptible Escherichia coli Ceftriaxone INTERPRETATION Susceptible Escherichia coli Piperacillin/Tazobactam INTERPRETATIO N Susceptible Ghada Madison MD LAB MICROBIOLOGY - GENERAL OR DERABLES Final Result [facility] [place] [address] * Blood culture Blood (12/14/2024 5:08 PM CDT) Report Final Report: No growth Blood 12/14/2024 5:08 PM CDT 12/14/2024 6:03 PM CDT Narrative [facility] - 12/19/2024 7:00 AM CDT Collection->Peripheral 1. Blood cultures are incubated for 4 days on a continuously monitored blood culture system. The first report of a negative culture is issued within 24 hours of receipt of the specimen in the laboratory. 2. Positive culture results are reported as soon as they are detected. 3. The most important factor for detection of microbes in the setting of bloodstream infection is the volume of blood submitted for culture. Failure to collect an optimal blood volume can result in false negative blood cultures. 4. For pediatric patients, the recommended blood volume to collect follows a weight based strategy. See the electronic test catalog for collection instructions. 5. For positive blood cultures, a rapid molecular test may be performed for organism identification using the valentin ePlex blood culture identification panel for gram positive (BCID-GP) and gram negative (BCID-GN) organisms. This nucleic acid amplification test detects microbial DNA in positive blood culture broth. This assay has been cleared by the [place] Food and Drug Administration and its performance characteristics have been verified by the [facility]. For questions about this culture, contact the Microbiology Laboratory at [phone]. Interpretive data was last revised on 24. us Rebeca Atkins MD LAB MICROBIOLOGY - GE NERAL ORDERABLES Final Result [facility] [place] [address] * Blood culture Blood (12/14/2024 5:08 PM CDT) Report Final Report: No growth Blood 12/14/2024 5:08 PM CDT 12/14/2024 6:03 PM CDT Narrative [facility] - 12/19/2024 7:00 AM CDT Collection->Peripheral 1. Blood cultures are incubated for 4 days on a continuously monitored blood culture system. The first report of a negative culture is issued within 24 hours of receipt of the specimen in the laboratory. 2. Positive culture results are reported as soon as they are detected. 3. The most important factor for detection of microbes in the setting of bloodstream infection is the volume of blood submitted for culture. Failure to collect an optimal blood volume can result in false negative blood cultures. 4. For pediatric patients, the recommended blood volume to collect follows a weight based strategy. See the electronic test catalog for collection instructions. 5. For positive blood cultures, a rapid molecular test may be performed for organism identification using the valentin ePlex blood culture identification panel for gram positive (BCID-GP) and gram negative (BCID-GN) organisms. This nucleic acid amplification test detects microbial DNA in positive blood culture broth. This assay has been cleared by the [place] Food and Drug Administration and its performance characteristics have been verified by the [facility]. For questions about this culture, contact the Microbiology Laboratory at [phone]. Interpretive data was last revised on 24. Rebeca Atkins MD LAB MICROBIOLOGY - [facility] ORDERABLES Final Result [facility] [place] [address] * (ABNORMAL) Urinalysis reflex to microscopic and culture Urine, clean voided (12/14/2024 3:34 PM CDT) Color, ur Yellow Yellow Clarity, ur Cloudy(A) Clear [facility] Specific gravity, ur 1.018 1.003 - 1.030 [facility] pH, urine 6.5 [facility] Comment: Interpretive Data U rine pH is affected by diet, medications, systemic acid-base disturbances, and renal tubular function. pH may affect urinary stone formation. For example, urine pH below 6.0 may help reduce the tendency for calcium phosphate stones and pH greater than 6.0 may reduce the tendency for uric acid stone formation. Source: [facility] Current Interpretive Data was last revised on 2017 Protein, ur ql Trace Negative [facility] Glucose, ur ql Negative Negative [facility] Ketones, ur Negative Negative [facility] Bilirubin, ur Negative Negative [facility] Blood, ur Negative Negative [facility] Urobilinogen, ur >=8.0(A) <2.0 mg/dL [facility] Nitrite, ur Negative Negative [facility] Leukocyte esterase, ur 2+(A) Negative [facility] UA reflex comment Reflex to microscopic UA will be performed. [facility] Urine, clean voided 12/14/2024 3:34 PM CDT 12/14/2024 3:43 PM CDT us Rebeca Atkins MD LAB MICROBIOLOGY - NERAL ORDERABLES Final Result Performing Organization Address City/[facility]/ZIP Co de Phone Number [facility] [place] [address] * Urinalysis, microscopic only (12/14/2024 3:34 PM CDT) WBC, ur 0-5 0 - 5 /HPF RBC, ur 0-2 0 - 2 /HPF [facility] Culture Reflex Comment Reflex conditions for urine culture (WBC >10) not met. [facility] Urine, clean voided 12/14/2024 3:34 PM CDT 12/14/2024 3:43 PM CDT us Rebeca Atkins MD LAB URINE ORDERABLES Final Result Performing Organization Address City/[facility]/ZIP Co de Phone Number [facility] [place] [address] * Lactate (12/14/2024 1:39 PM CDT) Lactate 1.0 0.7 - 2.0 mmol/L Blood 12/14/2024 1:39 PM CDT 12/14/2024 1:55 PM CDT Rebeca Atkins MD LAB BLOOD ORDERABLES Final Result [facility] [place] [address] * eGFR (12/14/2024 1:39 PM CDT) eGFR >90 >=60 mL/min/1. 73 m2 Comment: Interpretive Data Reference Interval Normal >/= 90 mL/min/1.73m2 Mildly decreased* 60 - 89 mL/min/1.73m2 Mildly to moderately decreased 45 - 59 mL/min/1.73m2 Moderately to severely decreased 30 - 44 mL/min/1.73m2 Severely decreased 15 - 29 mL/min/1.73m2 Kidney Failure < 15 mL/min/1.73m2 *Relative to young adult level Estimated glomerular filtration rate is determined by the 2020 CKD-EPI equation recommended by the National Kidney Foundation (A Unifying Approach to GFR Estimation: Recommendations of the NKF-ASK Task Force on Reassessing the Inclusion of Race in Diagnosing Kidney Disease, JASN 2020). The CKD-EPI equation should not be used for patients with unstable renal function and has not been validated in children and those over 70. Current interpretive data was last reviewed 2021. Blood 12/14/2024 1:39 PM CDT 12/14/2024 1:55 PM CDT Rebeca Atkins MD LAB BLOOD ORDERABLES Final Result [facility] [place] [address] * (ABNORMAL) CBC without differential (12/14/2024 1:39 PM CDT) WBC 9.39 3.80 - 9.90 K/cumm Hgb 8.9(L) 11.9 - 15.5 g/dL [facility] Hct 26.6(L) 35.6 - 45.5 % [facility] Plt 392 150 - 400 K/cumm [facility] MPV 9.0(L) 9.1 - 12.3 fL [facility] RBC 3.05(L) 3.90 - 5.20 M/cumm [facility] MCV 87.2 81.3 - 96.4 fL [facility] MCH 29.2 27.1 - 33.3 pg [facility] MCHC 33.5 32.3 - 35.7 g/dL [facility] RDW CV 13.4 11.1 - 14.9 % [facility] RDW SD 41.7 35.7 - 48.1 fL [facility] NRBC abs 0.00 0.00 - 0.01 K/cumm [facility] Blood 12/14/2024 1:39 PM CDT 12/14/2024 1:55 PM CDT us Rebeca Atkins MD LAB BLOOD ORDERABLES Final Result Performing Organization Address [facility] Co de Phone Number [facility] [place], [place] [address] * Type and screen (12/14/2024 1:39 PM CDT) Maria Alejandra, indirect Negative ABO Rh O Positive [facility] Blood 12/14/2024 1:39 PM CDT 12/14/2024 1:48 PM CDT Narrative [facility] - 12/14/2024 2:42 PM CDT Has the patient had Daratumumab or Isatuximab in the past 6 months?->Unknown Rebeca Atkins MD LAB BLOOD BANK TEST O RDERABLES Final Result Performing Organization Address City/[facility]/ZIP Co de Phone Number [facility] [place] [address] * (ABNORMAL) Comprehensive metabolic panel (12/14/2024 1:39 PM CDT) Sodium 138 135 - 145 mmol/L Potassium, pl 3.7 3.3 - 4.9 mmol/L [facility] Chloride 104 97 - 110 mmol/L [facility] CO2 26 22 - 32 mmol/L [facility] Anion gap 8 2 - 15 mmol/L [facility] BUN 6 6 - 25 mg/dL [facility] Creatinine 0.73 0.60 - 1.10 mg/dL [facility] Glucose 107 70 - 199 mg/dL [facility] Comment: Interpretive Data Fasting glucose >/= 126 mg/dl is diagnostic for diabetes. Fasting is defined as no caloric intake for at least 8 hours. Fasting glucose between 100 mg/dl to 125 mg/dl is diagnostic of prediabetes. In a patient with classic symptoms of hyperglycemia or hyperglycemic crisis, a random glucose >/= 200 mg/dl is diagnostic for diabetes. In the absence of unequivocal hyperglycemia, results should be confirmed by repeat testing. The classification and Diagnosis of Diabetes Diabetes Care 2021; 46: S19-S40. Current interpretive data was last revised 2022. Calcium 8.7 8.5 - 10.3 mg/dL [facility] Bilirubin, total 1.8(H) 0.1 - 1.2 mg/dL [facility] Protein, pl 7.7 6.5 - 8.5 g/dL [facility] Albumin 3.3(L) 3.5 - 5.0 g/dL [facility] Alk phos 51 40 - 130 Units/L [facility] ALT 11 7 - 45 Units/L [facility] AST 28 10 - 45 Units/L [facility] Blood 12/14/2024 1:39 PM CDT 12/14/2024 1:55 PM CDT us Rebeca Atkins MD LAB BLOOD ORDERABLES Final Result [facility] [place] [address] * CT Chest PE (CTA) Abdomen Pelvis W Contrast (12/12/2024 9:46 PM CDT) Anatomical Region Laterality Modality Body N/A Computed Tomogra phy 12/12/2024 10:5 1 PM CDT Addenda Addendum by Scarlet Maya MD on 01/12/2025 3:15 PM CDT Follow up LIMITED ( LEFT) RENAL SONOGRAM done on 12/15/24. Nicky QUIGLEY, CASSIDY. Edited by: Nicky Mzea Electronically signed by: Scarlet Maya M.D. Impressions 12/13/2024 9:50 AM CDT 1. No pulmonary embolism. 2. Hemopertioneum with adjacent peritonitis, likely reactive from the hemoperitoneum. Pneumoperitoneum is likely postoperative. 3. Locule of gas in the bladder. Recommend correlation with history of catheterization. 4. High density left interpolar renal lesion may represent a hemorrhagic or proteinaceous cyst. However recommend follow up with renal ultrasound. Recommend follow up of the Incidental left renal lesion Additional Imaging less than 1 month with renal ultrasound. Dictated by: Yfn Pritchard MD The radiology attending physician has personally reviewed this study, and had reviewed and/or edited this written report and agrees with it. Electronically signed by: Scarlet Maya M.D. Narrative 12/13/2024 9:50 AM CDT EXAMINATION: CT CHEST PE (CTA) ABDOMEN PELVIS W CONTRAST HISTORY: 49-year-old female presenting with abdominal pain and shortness of breath. TECHNIQUE: Computed tomographic images were acquired using a chest angiographic protocol optimized for pulmonary embolism. Computed tomographic examination of the abdomen and pelvis with intravenous contrast was performed using a standard protocol. Contrast enhanced transaxial images were obtained following the intravenous administration of 93 ml of nonionic contrast. Multiplanar reformatted images and three-dimensional images were obtained on the 3-D workstation and sent to the PACS archival system. COMPARISON: None FINDINGS: No pulmonary embolism. No axillary, supraclavicular, mediastinal, or hilar lymphadenopathy. Normal heart size. No pericardial effusion. Normal caliber main pulmonary artery and thoracic aorta. There is mild atelectasis in the right lung base. No suspicious pulmonary nodules. No consolidation, pleural effusion or pneumothorax. Changes of prior gastric sleeve. No suspicious liver lesions. No intrahepatic or extrahepatic biliary ductal dilation. The portal, splenic, and superior mesenteric veins are patent. Normal appearance of the gallbladder, pancreas, spleen and bilateral adrenal glands. Left parapelvic renal cyst and other hypoattenuating, too small to characterize lesions in both kidneys. The kidneys enhance symmetrically. High density left interpolar renal lesion may represent a hemorrhagic or proteinaceous cyst. No hydronephrosis. Small locules of gas in the urinary bladder the patient is status post hysterectomy. Normal course and caliber of the large bowel. The appendix is not identified. No evidence of small bowel obstruction. 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 There is pelvic free fluid with peritonitis and surrounding stranding. Multiple adjacent enlarged lymph nodes are likely reactive. Changes of multiple endometrial resections. No suspicious osseous lesions. Procedure Note Scarlet Maya MD - 12/13/2024 EXAMINATION: CT CHEST PE (CTA) ABDOMEN PELVIS W CONTRAST HISTORY: 49-year-old female presenting with abdominal pain and shortness of breath. TECHNIQUE: Computed tomographic images were acquired using a chest angiographic protocol optimized for pulmonary embolism. Computed tomographic examination of the abdomen and pelvis with intravenous contrast was performed using a standard protocol. Contrast enhanced transaxial images were obtained following the intravenous administration of 93 ml of nonionic contrast. Multiplanar reformatted images and three-dimensional images were obtained on the 3-D workstation and sent to the PACS archival system. COMPARISON: None FINDINGS: No pulmonary embolism. No axillary, supraclavicular, mediastinal, or hilar lymphadenopathy. Normal heart size. No pericardial effusion. Normal caliber main pulmonary artery and thoracic aorta. There is mild atelectasis in the right lung base. No suspicious pulmonary nodules. No consolidation, pleural effusion or pneumothorax. Changes of prior gastric sleeve. No suspicious liver lesions. No intrahepatic or extrahepatic biliary ductal dilation. The portal, splenic, and superior mesenteric veins are patent. Normal appearance of the gallbladder, pancreas, spleen and bilateral adrenal glands. Left parapelvic renal cyst and other hypoattenuating, too small to characterize lesions in both kidneys. The kidneys enhance symmetrically. High density left interpolar renal lesion may represent a hemorrhagic or proteinaceous cyst. No hydronephrosis. Small locules of gas in the urinary bladder the patient is status post hysterectomy. Normal course and caliber of the large bowel. The appendix is not identified. No evidence of small bowel obstruction. 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 There is pelvic free fluid with peritonitis and surrounding stranding. Multiple adjacent enlarged lymph nodes are likely reactive. Changes of multiple endometrial resections. No suspicious osseous lesions. IMPRESSION: 1. No pulmonary embolism. 2. Hemopertioneum with adjacent peritonitis, likely reactive from the hemoperitoneum. Pneumoperitoneum is likely postoperative. 3. Locule of gas in the bladder. Recommend correlation with history of catheterization. 4. High density left interpolar renal lesion may represent a hemorrhagic or proteinaceous cyst. However recommend follow up with renal ultrasound. Recommend follow up of the Incidental left renal lesion Additional Imaging less than 1 month with renal ultrasound. Dictated by: Yfn Pritchard MD The radiology attending physician has personally reviewed this study, and had reviewed and/or edited this written report and agrees with it. Electronically signed by: Scarlet Maya M.D. Ghada Madison MD IMG CT PROCEDURES Edited Resu lt - Final * eGFR (12/12/2024 7:32 PM CDT) eGFR >90 >=60 mL/min/1. 73 m2 Comment: Interpretive Data Reference Interval Normal >/= 90 mL/min/1.73m2 Mildly decreased* 60 - 89 mL/min/1.73m2 Mildly to moderately decreased 45 - 59 mL/min/1.73m2 Moderately to severely decreased 30 - 44 mL/min/1.73m2 Severely decreased 15 - 29 mL/min/1.73m2 Kidney Failure < 15 mL/min/1.73m2 *Relative to young adult level Estimated glomerular filtration rate is determined by the 2020 CKD-EPI equation recommended by the National Kid[employer] (A Unifying Approach to GFR Estimation: Recommendations of the NKF-ASK Task Force on Reassessing the Inclusion of Race in Diagnosing Kidney Disease, JASN 2020). The CKD-EPI equation should not be used for patients with unstable renal function and has not been validated in children and those over 70. Current interpretive data was last reviewed 2021. Blood 12/12/2024 7:32 PM CDT 12/12/2024 7:49 PM CDT Ghada Madison MD LAB BLOOD ORDERABLES Final Re sult Performing Organization Address City/[facility]/ZIP Co de Phone Number [facility] [place] [address] * (ABNORMAL) CBC without differential (12/12/2024 7:32 PM CDT) Pathologist [facility] [place] WBC 10.02(H) 3.80 - 9.90 K/cumm Hgb 9.2(L) 11.9 - 15.5 g/dL [facility] Hct 27.3(L) 35.6 - 45.5 % [facility] Plt 412(H) 150 - 400 K/cumm [facility] MPV 9.1 9.1 - 12.3 fL [facility] RBC 3.12(L) 3.90 - 5.20 M/cumm [facility] MCV 87.5 81.3 - 96.4 fL [facility] MCH 29.5 27.1 - 33.3 pg [facility] MCHC 33.7 32.3 - 35.7 g/dL [facility] RDW CV 13.1 11.1 - 14.9 % [facility] RDW SD 40.2 35.7 - 48.1 fL [facility] NRBC abs 0.00 0.00 - 0.01 K/cumm [facility] Blood 12/12/2024 7:32 PM CDT 12/12/2024 7:50 PM CDT Ghada Madison MD LAB BLOOD ORDERABLES Final Re sult [facility] [place] [address] * (ABNORMAL) Hepatic function panel (12/12/2024 7:32 PM CDT) Pathologist [facility] [place] Bilirubin, total 2.1(H) 0.1 - 1.2 mg/dL Bilirubin, direct 0.4(H) 0.1 - 0.3 mg/dL [facility] Protein, pl 8.0 6.5 - 8.5 g/dL [facility] Albumin 3.9 3.5 - 5.0 g/dL [facility] Alk phos 49 40 - 130 Units/L [facility] ALT 13 7 - 45 Units/L [facility] AST 50(H) 10 - 45 Units/L [facility] Blood 12/12/2024 7:32 PM CDT 12/12/2024 7:49 PM CDT Ghada Madison MD LAB BLOOD ORDERABLES Final Re sult [facility] [place] [address] * Basic metabolic panel (12/12/2024 7:32 PM CDT) Pathologist [facility] [place] Sodium 141 135 - 145 mmol/L Potassium, pl 3.6 3.3 - 4.9 mmol/L [facility] Chloride 102 97 - 110 mmol/L [facility] CO2 29 22 - 32 mmol/L [facility] Anion gap 10 2 - 15 mmol/L [facility] BUN 12 6 - 25 mg/dL [facility] Creatinine 0.73 0.60 - 1.10 mg/dL [facility] Glucose 94 70 - 199 mg/dL [facility] Comment: Interpretive Data Fasting glucose >/= 126 mg/dl is diagnostic for diabetes. Fasting is defined as no caloric intake for at least 8 hours. Fasting glucose between 100 mg/dl to 125 mg/dl is diagnostic of prediabetes. In a patient with classic symptoms of hyperglycemia or hyperglycemic crisis, a random glucose >/= 200 mg/dl is diagnostic for diabetes. In the absence of unequivocal hyperglycemia, results should be confirmed by repeat testing. The classification and Diagnosis of Diabetes Diabetes Care 202; 46: S19-S40. Current interpretive data was last revised 2022. Calcium 9.5 8.5 - 10.3 mg/dL [facility] Blood 12/12/2024 7:32 PM CDT 12/12/2024 7:49 PM CDT Ghada Madison MD LAB BLOOD ORDERABLES Final Re sult Performing Organization Address City/[facility]/ZIP Co de Phone Number [facility] Department [place] [address] * (ABNORMAL) POCT urinalysis (Clinitek) (12/12/2024 6:01 PM CDT) Color, ur, POC Kerry(A) Yellow Clarity, UA, POC Clear Clear [facility] Glucose, ur, POC Negative Negative [facility] Bilirubin, ur, POC Negative Negative [facility] Ketones, ur, POC Negative Negative [facility] Specific gravity, ur, POC 1.010 1.010 - 1.025 [facility] Blood, ur, POC Trace(A) Negative [facility] pH, ur, POC 6.5 [facility] Comment: Interpretive Data Urine pH is affected by diet, medications, systemic acid-base disturbances, and renal tubular function. pH may affect urinary stone formation. For example, urine pH below 6.0 may help reduce the tendency for calcium phosphate stones and pH greater than 6.0 may reduce the tendency for uric acid stone formation. Source: [facility] [place]. Last Revised Date: 08-16-2017 Protein, ur, POC 1+(A) Negative [facility] Urobilinogen, ur, POC 2.0 mg/dL(A) mg/dL [facility] Nitrites, ur, POC Negative Negative [facility] Leukocyte esterase, ur, POC Negative Negative [facility] Urine 12/12/2024 6:01 PM CDT 12/12/2024 6:01 PM CDT Ghada Madison MD LAB POCT ORDERABLES - DEVICE Final Result Performing Organization Address City/[facility]/ZIP Co de Phone Number [facility] [place] [address] * Surgical pathology (12/04/2024 1:44 PM CDT) Tissue (Peritoneal Biopsy) 12/04/2024 1:44 PM CDT Tissue specimen (specimen) (Uterus with/without tubes & ovaries, Non-neoplastic) 12/04/2024 2:32 PM CDT Tissue specimen (specimen) (Peritoneal Biopsy) 12/04/2024 2:40 PM CDT Narrative PATHOLOGY [facility] - 12/15/2024 7:45 PM CDT EPIC results best viewed via link to PDF [facility] Carras[facility] Laboratory [place] [address] Note to Patients: This report may contain a detailed description of human tissue sent by a health care provider to the laboratory for pathologic evaluation. The content of this report is essential for diagnosis and may provide important critical findings. This information may be unfamiliar to patients to review without a medical professional present. It is advised that the patient review this report in the presence of a health care provider who can answer questions and explain the details. SURGICAL PATHOLOGY REPORT FINAL Patient Name: CON LUGO Gender: F : 1975 (Age: 49) Address: [address] [place] [id number] Hospital #: [id number] Taken:12/04/2024 Received:12/04/2024 Reported: 12/15/2024 Patient Type: [facility] Service: Surgery Location: [facility] OR POD1 Physician(s): Ghada Madison M.D. Ignacia Moran MD Diagnosis: A. Peritoneum, right pelvic nodule, biopsy - Endometriosis B. Uterus, cervix, and bilateral fallopian tubes, hysterectomy and bilateral salpingectomy - Endometrium - Asynchronous pattern consistent with exogenous progestin therapy - No evidence of hyperplasia or malignancy - Myometrium - Endometrial stromal nodule (see comment) - Adenomyosis - Leiomyomata - Cervix - No evidence of dysplasia or malignancy - Fallopian tubes, bilateral - Fallopian tubes with no histopathologic abnormality - Incidental endometriosis in right adnexal soft tissue C. Peritoneum, left ureteral nodule, biopsy - Unremarkable fibroadipose tissue sy/12/08/2024 17:21 By this signature, I attest that the above diagnosis is based upon my personal examination of the slides(and/or other material indicated in the diagnosis). Delfino Kruger M.D., Ph.D. Report Electronically Reviewed and Signed Out By Delfino Kruger M.D., Ph.D. 12/15/2024 19:45:48 Microscopic Description and Comment: Microscopic examination substantiates the above cited diagnosis. Part B: One of the myometrial nodules is composed of cells with epithelioid morphology (slide B7). The lesion has an expansile growth pattern at its margin, with less than three finger-like projections which are less than 3 mm in length; there is no evidence of lymphovascular space invasion. To characterize the cells, immunohistochemical stains (IHC; single antibody procedures with appropriate controls) were performed. The epithelioid cells are positive for SMA and CD10 with rare positivity for desmin, and are negative for C-Kit, DOG1, and HMB-45. Taken together, the morphology and immunoprofile of the lesion are indicative of an endometrial stromal nodule. Slide B7 and the related immunostains were reviewed by Dr. Lázaro Fajardo, who agree with the diagnosis. Edelmira Egan M.D. History: The patient is a 49-year-old woman with abnormal uterine bleeding and adenomyosis. Operative Procedure: Laparoscopic total hysterectomy with bilateral salpingectomy; endometriosis excision; cystoscopy; left ureterolysis. Specimen(s) Received: A: Right pelvic endometriosis nodule B: Uterus, cervix, bilateral fallopian tubes C: Left ureteral endometriosis nodule Gross Description: Received in three formalin jars, each labeled with the patient's identifiers. A. Labeled right pelvic endometriosis nodule is a 0.9 x 0.6 x 0.3 cm dow-white tissue fragment which is smooth on one side and cauterized on the opposing side. Sectioning reveals a 0.4 cm in greatest dimension dow-white nodule. Entirely submitted in A1. Jar 0. B. Labeled uterus, cervix, bilateral fallopian tubes is a 241 g, 12.0 x 7.2 x 7.2 cm uterus and cervix with detached and undesignated bilateral fimbriated fallopian tubes (fimbriated fallopian tube 1 - 6.8 cm in length by 0.2-0.5 cm in diameter and fimbriated fallopian tube 2 - 6.7 cm in length by 0.2-0.5 cm in diameter). The uterine serosa is dow-brown, smooth, and glistening. The 3.4 x 3.4 cm ectocervix is lined by smooth lopez mucosa with diffuse submucosal hemorrhage. The 1.0 cm in diameter slit-like os is patent. The cervix and uterus are bivalved to reveal the 4.3 cm in length by 0.6-1.9 cm in diameter endocervical canal to be lined by smooth dow mucosa. The 5.2 x 1.4 cm endometrial cavity is lined by smooth dark brown endometrium measuring up to 0.2 cm in thickness. The dow-pink myometrium is markedly trabeculated and multiple dow-white nodules are identified ranging from 0.2-1.7 cm in greatest dimension. A few of the nodules are partially congested. One nodule is also identified in the right adnexal soft tissue. The serosa on the bilateral fimbriated fallopian tubes is dow-white, focally hemorrhagic, smooth, and glistening with scattered paratubal cysts identified on both, measuring up to 0.4 cm in greatest dimension. Sectioning reveals an empty pinpoint to stellate lumen in both tubes. Submitted as follows. Jar 3. B1 Transportation Maintenance Operator anterior cervix, full thickness B2-B3 Transportation Maintenance Operator anterior endomyometrium, full thickness bisected B4 Transportation Maintenance Operator posterior cervix, full thickness B5-B6 Transportation Maintenance Operator posterior endomyometrium, full thickness bisected B7-B9 Transportation Maintenance Operator myometrial nodules B10 Transportation Maintenance Operator right adnexal soft tissue nodule, 2 sections B11 Entire fimbriae and medical office representative fallopian tube 1 B12 Entire fimbriae and medical office representative fallopian tube 2 C. Labeled left ureteral endometriosis nodule is a 1.1 x 1.0 x 0.3 cm dow-brown tissue fragment which is smooth on one side and cauterized on the opposing side. Sectioning reveals a 0.3 cm in greatest dimension dow-brown nodule. Entirely submitted in C1. Jar 0. dxb12/05/2024 14:15 PA(s): BASSEM LopezLALITO(ASCP)CM By this signature, I attest that the above diagnosis is based upon my personal examination of the slides(and/or other material). Addenda/Procedures The performance characteristics of some immunohistochemical stains, fluorescence in-situ hybridization tests and immunophenotyping by flow cytometry cited in this report (if any) were determined by the Surgical Pathology and Flow Cytometry Departments at [facility] as part of an ongoing it quality analyst program and in compliance with federally mandated regulations drawn from the Clinical Laboratory Improvement Act of 1988 (CLIA '88). Some of these tests rely on the use of analyte specific reagents and are subject to specific labeling requirements by the US Food and Drug Administration. Such diagnostic tests may only be performed in a facility that is certified by the Department of Health and Human Services as a high complexity laboratory under CLIA '88. The FDA has determined that such clearance or approval is not necessary. This test is used for clinical purposes. It should not be regarded as investigational or for research. Nevertheless, federal rules concerning the medical use of analyte specific reagents require that the following disclaimer be attached to the report: This test was developed and its performance characteristics determined by the Surgical Pathology and Flow Cytometry Departments of [facility]. It has not been cleared or approved by the U. S. Food and Drug Administration. IMAGES AND SCANNED DOCUMENTS, IF INCLUDED, ONLY VIEWABLE IN PDF VERSION OF REPORT Ghada Madison MD LAB PATHOLOGY ORDERABLES Jory perez Result PATHOLOGY [facility] 3rd Floor [place], [place] [phone] * TX AN ELECTIVE ENDOTRACHEAL AIRWAY, TX AN PROCEDURE PLACEHOLDER (12/04/2024 11:51 AM CDT) Narrative Mihir Stark CRNA - 12/04/2024 11:51 AM CDT Mihir Stark CRNA 12/04/2024 11:51 AM Airway Patient location: OR Urgency: elective Indications for airway management: anesthesia Difficult airway: no Staff: Supervising provider: Sayda Lao DO Placed by: AUTOCAD DRAFTSMAN: Mihir Stark CRNA Emergent airway documentation: Risks and benefits discussed: yes Consent obtained: yes Consent given by: patient Airway prep: Preoxygenated: yes Patient position: sniffing Mask difficulty assessment: 0 - not attempted Spontaneous ventilation during airway: absent Sedation level during airway: GA Final airway details: Final airway type: endotracheal airway Tube type: ETT ETT size: 7.0 mm Cuffed: yes Technique used for successful ETT placement: video laryngoscopy Devices/Methods used in placement: intubating stylet Insertion site: oral Blade type: Rosendo Video blade type: King Blade size: 3 Cormack-Lehane (video): grade I - full view of glottis Cuff volume: 7 mL Cuff inflated with: air ETT to lips: 21 cm Placement verified by: auscultation Airway secured with: silk tape Number of attempts: 1 us Sayda Lao DO ANESTHESIA ORDERABLES Final Result * Type and screen (12/04/2024 9:57 AM CDT) Maria Alejandra, indirect Negative ABO Rh O Positive [facility] Blood 12/04/2024 9:57 AM CDT 12/04/2024 10:16 AM CDT Narrative [facility] - 12/04/2024 11:12 AM CDT Has the patient had Daratumumab or Isatuximab in the past 6 months?->Unknown us Belinda Seth DECORATING MACHINE OPERATOR LAB BLOOD BANK TEST ORDERA BLES Final Result [facility] [place] [address] * Screening Mammogram Bilateral W Santos (07/17/2024 8:01 AM CARTRIDGE GAUGER) Anatomical Region Laterality Modality Breast Bilateral Mammography Narrative 07/17/2024 3:52 PM CARTRIDGE GAUGER 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 Views obtained: bilateral craniocaudal and bilateral mediolateral oblique. Computer Aided Detection was performed. Mammogram Findings: The present examination has been compared to a prior imaging study performed at [facility] on 12/29/2020. There are scattered areas of fibroglandular density. There is no suspicious abnormality in either breast. Impression: There is no mammographic evidence of malignancy. Annual screening mammography is recommended. OVERALL FINAL ASSESSMENT: BI-RADS CATEGORY 1: Negative. Procedure Note Nicole Banegas MD - 07/17/2024 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 Views obtained: bilateral craniocaudal and bilateral mediolateral oblique. Computer Aided Detection was performed. Mammogram Findings: The present examination has been compared to a prior imaging study performed at [facility] on 12/29/2020. There are scattered areas of fibroglandular density. There is no suspicious abnormality in either breast. Impression: There is no mammographic evidence of malignancy. Annual screening mammography is recommended. OVERALL FINAL ASSESSMENT: BI-RADS CATEGORY 1: Negative. us Self Screening Mammogram IMG MAMMO PROCEDURES Fi nal Result * (ABNORMAL) High Risk HPV DNA Detection with Genotyping (Molecular component) (07/02/2024 5:33 PM CARTRIDGE GAUGER) Pathologist [facility] [place] HPV HR 16 Not Detected Not Detected [facility] HPV HR 18 Not Detected Not Detected [facility] HPV HR Non 16/18 Detected(A) Not Detected [facility] Comment: Interpretive Data Nucleic acid amplification for detection of high-risk Human Papilloma virus (HPV) is performed by the Sarah Valentin 6800 HPV test. This assay specifically detects HPV-16 and HPV-18 genotypes. The following HPV genotypes are detected as high-risk HPV: HPV-31, 33, 35, ,39, 45, 51, 52, 56, 58, 59, 66, and 68. This assay has been approved by the [place] Food and Drug Administration for detection of HPV in cervical specimens collected by a physician using an endocervical brush/spatula or cervical broom and placed in the ThinPrep Pap Test PreservCyt collection containers. The performance characteristics of this test have been verified by the [facility] Molecular Infectious Disease laboratory. Correlate with separately reported cytology results, as applicable. Interpretive data last revised 23 Endocervical 07/02/2024 5:33 PM CARTRIDGE GAUGER 07/03/2024 8:49 AM CARTRIDGE GAUGER Narrative NANCY FUCHS - 07/04/2024 8:34 PM CARTRIDGE GAUGER Clinical history and diagnosis->Routine screening pap smear Number of vials->1 Testing type->Screening Last menstrual period (date if known)->unknown Ghada Madison MD LAB BODY FLUIDS AND STOOLS OR DERABLES Final Result [facility] Department [place] [address] [facility] from Last 3 Months or Most Recently Relevant to [place] [address] [facility] [place] [address] [facility] [address] LOCAL PLUS Advance Directives For more information, please contact: [phone] * Full Code (Latest Code Status on File) Date Activated Date Inactivated Comments 12/14/2024 2:07 PM 12/17/2024 6:52 PM * Full Code Date Activated Date Inactivated Comments 06/27/2022 11:59 AM 06/28/2022 8:30 PM Care Teams Geothermal Operations Engineer Relationship Specialty Start Date End Date Ignacia Moran MD PCP - General Family Medicine 04/14/22
--- OUTSIDE RECORDS SUMMARY | 2025-03-06 09:02 | XMS_ITS | Referral Summary ---
Author Organization [facility] Physician Office Building [address] [place] [id number] Care Team Providers Care Shactor Name Role Phone Ignacia Moran MD Primary Care Provi didier Encounters Date Type Department Care Team Description 02/04/2025 3:45 PM CDT Office Visit [facility] Obstetrics and Gynecology [address] [place] [address] 7th Floor [address] [place] [phone] Ghada Madison MD Vaginal cuff cellulitis (Primary Dx) 01/14/2025 Results Follow-Up [address] [phone] Ghada Madison MD CBC without differential 01/14/2025 1:05 PM CDT Lab [facility] [address] [place] [address] [place] [address] Vaginal cuff cellulitis; Abnormal uterine bleeding 01/14/2025 12:15 PM CDT Office Visit [facility] Obstetrics and Gynecology [address] [place] [address] 7th Floor [address] [place] [phone] Ghada Madison MD Vaginal cuff cellulitis (Primary Dx) 01/13/[address] [phone] Ghada Madison MD 01/13/2025 Results Follow-Up [address] [phone] Pelvis W Contrast 01/12/2025 3:24 PM CDT - 01/12/2025 11:59 PM CDT Hospital Encounter [facility] [address] [place] [address] Post-operative state; Pelvic pain Discharge Disposition: Discharge to home or self care 01/06/2025 Orders Only [facility] Obstetrics and Gynecology [address] [place] [address] 7th Floor [address] [place] [phone] Ghada Madison MD Post-operative state (Primary Dx); Pelvic pain 12/30/2024 12:45 PM CDT Office Visit [facility] Obstetrics and Gynecology [address] [place] [address] 7th Floor [address] [place] [phone] Ghada Madison MD Post-operative state (Primary Dx) 12/23/2024 Telephone [facility] Obstetrics and Gynecology [address] [facility] 7th Floor [address] [place] [phone] Alonso Lugo, RN Appointment 12/18/2024 Results Follow-Up [address] [phone] Ghada Madison MD Aerobic and anaerobic culture and gram stain Abscess Vaginal 12/14/2024 12:07 PM CDT - 12/17/2024 2:51 PM CDT Hospital Encounter [address] [phone] Rebeca Atkins MD Mitchell, Nicky Singh MD Vaginal cuff dehiscence, initial encounter (Primary Dx); Post-operative state Discharge Disposition: Discharge to home or self care 12/14/2024 10:14 PM CDT Anesthesia Event [facility] Operating Room [address] [place] [phone] Shirlene Becker MD Gillespie, Julie Beth Fiona, MD 12/14/2024 8:00 PM CDT - 12/14/2024 10:15 PM CDT Surgery [facility] Operating Room [address] [place] [address] Ghada Madison MD EXAM UNDER ANESTHESIA WITH VAGINAL CUFF REPAIR 12/12/2024 5:34 PM CDT - 12/13/2024 1:10 AM CDT Hospital Encounter [address] [phone] Ghada Madison MD Abnormal uterine bleeding (Primary Dx) Discharge Disposition: Discharge to home or self care 12/12/2024 Telephone [facility] Obstetrics and Gynecology [facility] 7th Floor [address] [place] [phone] Alonso Lugo RN Post-op 12/04/2024 11:00 AM CDT - 12/04/2024 3:10 PM CDT Surgery [facility] Operating Room [address] [place] [phone] Ghada Madison MD LAPAROSCOPIC TOTAL HYSTERECTOMY 12/04/2024 11:16 AM CDT Anesthesia Event [facility] Operating Room [address] [place] [phone] Sayda Lao DO Montgomery, Andrea J., NP 12/04/2024 9:07 AM CDT - 12/04/2024 6:58 PM CDT Hospital Encounter [facility] Operating Room [address] [place] [address] Ghada Madison MD Abnormal uterine bleeding; Adenomyosis Discharge Disposition: Discharge to home or self care from Last 3 Months Allergies Active Allergy Reactions Criticality Noted Date [...] every 6 (six) hours 180 tablet 12/18/19 Active Additional Information Patient not taking.Reported on 12/30/2024 bisacodyL (DULCOLAX) 10 mg suppositoryIndicat ions:constipation Insert 1 suppository (10 mg total) into the rectum daily 12 suppository 12/18/19 Active Additional Information Patient not taking.Reported on 12/30/2024 oxyCODONE (ROXICODONE) 5 mg immediate release tabletIndications: Pain Take 1 tablet (5 mg total) by mouth every 4 (four) hours as needed for pain 15 tablet 12/18/19 Active Additional Information Patient not taking.Reported on [...] same. Assessment & Plan (08/25/2024 1:54 PM MILK DELIVERER): - Discussed that abnormal uterine bleeding and [...] surgery Assessment & Plan (07/02/2024 5:49 PM MILK DELIVERER): Abnormal uterine bleeding: - We discussed that [...] excess calories 1 08/27/2021 No diagnosis on [place] 05/25/2022 Morbid obesity 05/25/2022 GERD (gastroesophageal reflux disease) 2 Primary hypertension 05/01/2022 Primary osteoarthritis of both knees 05/01/2022 BMI 45.0-49.9, adult 04/21/2022 Immunizations Immunization Administration Dates Next Due Hep B Vaccine 05/30/2021,12/03/2020,10/29/2020 Influenza, Quadrivalent, Spl it, Intramuscular 10/29/2020 Influenza, Trivalent, IM (MDV) 05/30/2021 Influenza, Trivalent, Preser vative Free, Intramuscular 05/05/2024 MMR 12/03/2020,10/29/2020 PPD TEST 05/05/2024,07/09/2023,10/03/2022 Tdap 10/29/2020 Varicella 12/03/2020,10/29/2020 Social History Tobacco Use Types Packs/Day Years [...] on file Legal Sex Female 6:56 PM MILK DELIVERER Gender Identity Not on file Sexual Orientation Not on file Last Filed Vital Signs Vital Sign Reading [...] 02/04/2025 3:33 PM CDT Plan of Treatment Not on file Procedures Procedure Name Priority Date/Time Associated Diagnosis [...] 44 PM CDT Abnormal uterine bleeding Adenomyosis IN AN PROCEDURE PLACEHOLDER Routine 12/04/2024 11:51 AM CDT IN AN ELECTIVE ENDOTRACHEAL AIRWAY Routine 12/04/2024 11:51 [...] Read Routine (OP Routine) 07/17/2024 8:01 AM MILK DELIVERER Screening mammogram, encounter for HIGH RISK HPV DNA DETECTION WITH GENOTYPING Routine 07/02/2024 5:33 PM MILK DELIVERER Abnormal uterine bleeding from Last 3 Months [...] MD LAB BLOOD ORDERABLES Final Re sult [facility] [place] [address] * CBC without differential (01/14/2025 1:09 PM CDT) [facility] WBC 4.42 3.80 - 9.90 K/cumm Hgb 12.2 11.9 - 15.5 g/dL [facility] Hct 36.0 35.6 - 45.5 % [facility] Plt 219 150 - 400 K/cumm [facility] MPV 10.0 9.1 - 12.3 fL [facility] RBC 4.28 3.90 - 5.20 M/cumm [facility] MCV 84.1 81.3 - 96.4 fL [facility] MCH 28.5 27.1 - 33.3 pg [facility] MCHC 33.9 32.3 - 35.7 g/dL [facility] RDW CV 14.6 11.1 - 14.9 % [facility] RDW SD 45.0 35.7 - 48.1 fL [facility] NRBC abs 0.00 0.00 - 0.01 K/cumm [facility] Blood 01/14/2025 1:09 PM CDT 01/14/2025 1:38 PM CDT us Ghada Madison MD LAB BLOOD ORDERABLES Final Re sult [facility] [place] [address] * (ABNORMAL) Comprehensive metabolic panel (01/14/2025 1:09 PM CDT) [facility] Sodium 141 135 - 145 mmol/L Potassium, pl 4.1 3.3 - 4.9 mmol/L [facility] Chloride 107 97 - 110 mmol/L [facility] CO2 30 22 - 32 mmol/L [facility] Anion gap 4 2 - 15 mmol/L [facility] BUN 5(L) 6 - 25 mg/dL [facility] Creatinine 0.67 0.60 - 1.10 mg/dL [facility] Glucose 87 70 - 199 mg/dL [facility] Comment: Interpretive Data Fasting glucose >/= 126 [...] 2022. Calcium 9.5 8.5 - 10.3 mg/dL [facility] Bilirubin, total 0.5 0.1 - 1.2 mg/dL [facility] Protein, pl 7.6 6.5 - 8.5 g/dL [facility] Albumin 3.9 3.5 - 5.0 g/dL [facility] Alk phos 52 40 - 130 Units/L [facility] ALT 11 7 - 45 Units/L [facility] AST 14 10 - 45 Units/L [facility] Blood 01/14/2025 1:09 PM CDT 01/14/2025 1:38 PM CDT Ghada Madison MD LAB BLOOD ORDERABLES Final Re sult [facility] One [facility] [place] [address] * CT Pelvis W Contrast (01/12/2025 3:52 [...] of Race in Diagnosing Kidney Disease, JASN 202). The CKD-EPI equation should not be used for patients with unstable renal function and has not been validated in children and those over 70. Current interpretive data was last reviewed 2021. Blood 12/17/2024 5:48 AM CDT 12/17/2024 6:17 AM CDT us Rebeca Atkins MD LAB BLOOD ORDERABLES Final Result Performing Organization Address City/State/[facility] Co de Phone Number [facility] [place] [address] * (ABNORMAL) CBC without differential (12/17/2024 5:48 AM CDT) [facility] WBC 7.66 3.80 - 9.90 K/cumm Hgb 8.7(L) 11.9 - 15.5 g/dL [facility] Hct 26.1(L) 35.6 - 45.5 % [facility] Plt 411(H) 150 - 400 K/cumm [facility] MPV 9.3 9.1 - 12.3 fL [facility] RBC 2.99(L) 3.90 - 5.20 M/cumm [facility] MCV 87.3 81.3 - 96.4 fL [facility] MCH 29.1 27.1 - 33.3 pg [facility] MCHC 33.3 32.3 - 35.7 g/dL [facility] RDW CV 13.6 11.1 - 14.9 % [facility] RDW SD 42.1 35.7 - 48.1 fL [facility] NRBC abs 0.00 0.00 - 0.01 K/cumm [facility] Blood 12/17/2024 5:48 AM CDT 12/17/2024 6:17 AM CDT Rebeca Atkins MD LAB BLOOD ORDERABLES Final Result Performing Organization Address [facility]/ZIP Co de Phone Number [facility] Department [place] [address] * (ABNORMAL) Comprehensive metabolic panel (12/17/2024 5:48 AM CDT) [facility] Sodium 141 135 - 145 mmol/L Potassium, pl 3.8 3.3 - 4.9 mmol/L [facility] Chloride 104 97 - 110 mmol/L [facility] CO2 27 22 - 32 mmol/L [facility] Anion gap 10 2 - 15 mmol/L [facility] BUN 4(L) 6 - 25 mg/dL [facility] Creatinine 0.63 0.60 - 1.10 mg/dL [facility] Glucose 91 70 - 199 mg/dL [facility] Comment: Interpretive Data Fasting glucose >/= 126 [...] 2022. Calcium 8.7 8.5 - 10.3 mg/dL [facility] Bilirubin, total 0.9 0.1 - 1.2 mg/dL [facility] Protein, pl 7.1 6.5 - 8.5 g/dL [facility] Albumin 3.1(L) 3.5 - 5.0 g/dL [facility] Alk phos 53 40 - 130 Units/L [facility] ALT 7 7 - 45 Units/L [facility] AST 19 10 - 45 Units/L [facility] Blood 12/17/2024 5:48 AM CDT 12/17/2024 6:17 AM CDT us Rebeca Atkins MD LAB BLOOD ORDERABLES Final Result [facility] One [facility] [place] [address] * eGFR (12/16/2024 4:46 AM CDT) eGFR [...] of Race in Diagnosing Kidney Disease, JASN 202). The CKD-EPI equation should not be used for patients with unstable renal function and has not been validated in children and those over 70. Current interpretive data was last reviewed 2021. Blood 12/16/2024 4:46 AM CDT 12/16/2024 5:48 AM CDT us Rebeca Atkins MD LAB BLOOD ORDERABLES Final Result [facility] One [facility] [place] [address] * (ABNORMAL) CBC without differential (12/16/2024 4:46 AM CDT) WBC 7.34 3.80 - 9.90 K/cumm Hgb 7.6(L) 11.9 - 15.5 g/dL [facility] Hct 22.5(L) 35.6 - 45.5 % [facility] Plt 365 150 - 400 K/cumm [facility] MPV 9.3 9.1 - 12.3 fL [facility] RBC 2.60(L) 3.90 - 5.20 M/cumm [facility] MCV 86.5 81.3 - 96.4 fL [facility] MCH 29.2 27.1 - 33.3 pg [facility] MCHC 33.8 32.3 - 35.7 g/dL [facility] RDW CV 13.5 11.1 - 14.9 % [facility] RDW SD 42.2 35.7 - 48.1 fL [facility] NRBC abs 0.00 0.00 - 0.01 K/cumm [facility] Blood 12/16/2024 4:46 AM CDT 12/16/2024 5:48 AM CDT us Rebeca Atkins MD LAB BLOOD ORDERABLES Final Result [facility] One [facility] [place] [address] * (ABNORMAL) Comprehensive metabolic panel (12/16/2024 4:46 AM CDT) Pathologist [facility] Sodium 141 135 - 145 mmol/L Potassium, pl 3.7 3.3 - 4.9 mmol/L [facility] Chloride 105 97 - 110 mmol/L [facility] CO2 29 22 - 32 mmol/L [facility] Anion gap 7 2 - 15 mmol/L [facility] BUN 6 6 - 25 mg/dL [facility] Creatinine 0.66 0.60 - 1.10 mg/dL [facility] Glucose 95 70 - 199 mg/dL [facility] Comment: Interpretive Data Fasting glucose >/= 126 [...] 2022. Calcium 8.4(L) 8.5 - 10.3 mg/dL [facility] Bilirubin, total 0.9 0.1 - 1.2 mg/dL [facility] Protein, pl 6.7 6.5 - 8.5 g/dL [facility] Albumin 3.0(L) 3.5 - 5.0 g/dL [facility] Alk phos 48 40 - 130 Units/L [facility] ALT 11 7 - 45 Units/L [facility] AST 18 10 - 45 Units/L [facility] Blood 12/16/2024 4:46 AM CDT 12/16/2024 5:48 AM CDT us Rebeca Atkins MD LAB BLOOD ORDERABLES Final Result NANCY Lala [facility] [place] [address] * US Kidney Limited (12/15/2024 3:57 PM [...] Atkins MD LAB BLOOD ORDERABLES Final Result [facility] One [facility] [place] [address] * (ABNORMAL) CBC without differential (12/15/2024 4:49 AM CDT) WBC 7.79 3.80 - 9.90 K/cumm Hgb 7.2(L) 11.9 - 15.5 g/dL [facility] Hct 21.6(L) 35.6 - 45.5 % [facility] Plt 316 150 - 400 K/cumm [facility] MPV 9.5 9.1 - 12.3 fL [facility] RBC 2.50(L) 3.90 - 5.20 M/cumm [facility] MCV 86.4 81.3 - 96.4 fL [facility] MCH 28.8 27.1 - 33.3 pg [facility] MCHC 33.3 32.3 - 35.7 g/dL [facility] RDW CV 13.3 11.1 - 14.9 % [facility] RDW SD 41.3 35.7 - 48.1 fL [facility] NRBC abs 0.00 0.00 - 0.01 K/cumm [facility] Blood 12/15/2024 4:49 AM CDT 12/15/2024 6:43 AM CDT us Rebeca Atkins MD LAB BLOOD ORDERABLES Final Result [facility] One [facility] [place] [address] * (ABNORMAL) Comprehensive metabolic panel (12/15/2024 4:49 AM CDT) Sodium 142 135 - 145 mmol/L Potassium, pl 3.6 3.3 - 4.9 mmol/L [facility] Chloride 105 97 - 110 mmol/L [facility] CO2 28 22 - 32 mmol/L [facility] Anion gap 9 2 - 15 mmol/L [facility] BUN 7 6 - 25 mg/dL [facility] Creatinine 0.72 0.60 - 1.10 mg/dL [facility] Glucose 94 70 - 199 mg/dL [facility] Comment: Interpretive Data Fasting glucose >/= 126 [...] 2022. Calcium 8.2(L) 8.5 - 10.3 mg/dL [facility] Bilirubin, total 1.2 0.1 - 1.2 mg/dL [facility] Protein, pl 6.6 6.5 - 8.5 g/dL [facility] Albumin 2.9(L) 3.5 - 5.0 g/dL [facility] Alk phos 46 40 - 130 Units/L [facility] ALT 8 7 - 45 Units/L [facility] AST 18 10 - 45 Units/L [facility] Blood 12/15/2024 4:49 AM CDT 12/15/2024 5:34 AM CDT us Rebeca Atkins MD LAB BLOOD ORDERABLES Final Result [facility] One [facility] [place] [address] * (ABNORMAL) Aerobic and anaerobic culture and gram stain Abscess Vaginal (12/14/2024 11:20 PM CDT) Direct Specimen Exam Stain: Rare polymorphonuclear leukocytes seen. Few Gram Positive Bacilli Rare Gram Negative Bacilli Report Final Report: Moderate Escherichia coli Rare Finegoldia magna (.) [facility] Organism ESCHERICHIA COLI [facility] Organism FINEGOLDIA MAGNA [facility] Abscess (Vaginal) 12/14/2024 11:20 PM CDT 12/15/2024 8:38 AM CDT Narrative [facility] - 12/18/2024 10:27 AM CDT Vaginal cuff fluid collection Specimen received on an ESwab. Testing performed by [facility] Microbiology Laboratory ([phone]) Specimens submitted from normally sterile body sites [...] Susceptible Escherichia coli Piperacillin/Tazobactam INTERPRETATIO N Susceptible us Ghada Madison MD LAB MICROBIOLOGY - GENERAL OR DERABLES Final Result [facility] One [facility] [place] [address] * Blood culture Blood (12/14/2024 5:08 PM CDT) Report Final Report: No growth Blood 12/14/2024 5:08 PM CDT 12/14/2024 6:03 PM CDT Narrative [facility] - 12/19/2024 7:00 AM CDT Collection->Peripheral 1. [...] performance characteristics have been verified by the [facility] Microbiology Laboratory. For questions about this culture, contact the Microbiology Laboratory at [phone]. Interpretive data was last revised on 24. Rebeca Atkins MD LAB MICROBIOLOGY - NERAL ORDERABLES Final Result NANCY SOTELO Dai [facility] [place] [address] * Blood culture Blood (12/14/2024 5:08 PM CDT) Report Final Report: No growth Blood 12/14/2024 5:08 PM CDT 12/14/2024 6:03 PM CDT Narrative NANCY [facility] - 12/19/2024 7:00 AM CDT Collection->Peripheral 1. [...] performance characteristics have been verified by the [facility] Microbiology Laboratory. For questions about this culture, contact the Microbiology Laboratory at [phone]. Interpretive data was last revised on 24. Rebeca Atkins MD LAB MICROBIOLOGY - NERAL ORDERABLES Final Result Performing Organization Address City/[facility]/ZIP Co de Phone Number NANCY [facility] Dai [facility] [place] [address] * (ABNORMAL) Urinalysis reflex to microscopic and culture Urine, clean voided (12/14/2024 3:34 PM CDT) Color, ur Yellow Yellow Clarity, ur Cloudy(A) Clear [facility] Specific gravity, ur 1.018 1.003 - 1.030 [facility] pH, urine 6.5 [facility] Comment: Interpretive Data U rine pH is affected by diet, medications, systemic acid-base disturbances, and renal tubular function. pH may affect urinary stone formation. For example, urine pH below 6.0 may help reduce the tendency for calcium phosphate stones and pH greater than 6.0 may reduce the tendency for uric acid stone formation. Source: [facility] [place] Current Interpretive Data was last revised on 2017 Protein, ur ql Trace Negative [facility] Glucose, ur ql Negative Negative [facility] Ketones, ur Negative Negative [facility] Bilirubin, ur Negative Negative [facility] Blood, ur Negative Negative [facility] Urobilinogen, ur >=8.0(A) <2.0 mg/dL [facility] Nitrite, ur Negative Negative [facility] Leukocyte esterase, ur 2+(A) Negative [facility] UA reflex comment Reflex to microscopic UA will be performed. [facility] Urine, clean voided 12/14/2024 3:34 PM CDT 12/14/2024 3:43 PM CDT Rebeca Atkins MD LAB MICROBIOLOGY - [facility] ORDERABLES Final Result [facility] One [facility] [place] [address] * Urinalysis, microscopic only (12/14/2024 3:34 PM CDT) WBC, ur 0-5 0 - 5 /HPF RBC, ur 0-2 0 - 2 /HPF [facility] Culture Reflex Comment Reflex conditions for urine culture (WBC >10) not met. [facility] Urine, clean voided 12/14/2024 3:34 PM CDT 12/14/2024 3:43 PM CDT Rebeca Atkins MD LAB URINE ORDERABLES Final Result [facility] [place] [address] * Lactate (12/14/2024 1:39 PM CDT) Lactate 1.0 0.7 - 2.0 mmol/L Blood 12/14/2024 1:39 PM CDT 12/14/2024 1:55 PM CDT Rebeca Atkins MD LAB BLOOD ORDERABLES Final Result Performing Organization Address [facility] Co de Phone Number [facility] [place] [address] * eGFR (12/14/2024 1:39 PM CDT) eGFR [...] Atkins MD LAB BLOOD ORDERABLES Final Result [facility] [place] [address] * (ABNORMAL) CBC without differential (12/14/2024 1:39 PM CDT) WBC 9.39 3.80 - 9.90 K/cumm Hgb 8.9(L) 11.9 - 15.5 g/dL [facility] Hct 26.6(L) 35.6 - 45.5 % [facility] Plt 392 150 - 400 K/cumm [facility] MPV 9.0(L) 9.1 - 12.3 fL [facility] RBC 3.05(L) 3.90 - 5.20 M/cumm [facility] MCV 87.2 81.3 - 96.4 fL [facility] MCH 29.2 27.1 - 33.3 pg [facility] MCHC 33.5 32.3 - 35.7 g/dL [facility] RDW CV 13.4 11.1 - 14.9 % [facility] RDW SD 41.7 35.7 - 48.1 fL [facility] NRBC abs 0.00 0.00 - 0.01 K/cumm [facility] Blood 12/14/2024 1:39 PM CDT 12/14/2024 1:55 PM CDT us Rebeca Atkins MD LAB BLOOD ORDERABLES Final Result [facility] One [facility] [place] [address] * Type and screen (12/14/2024 1:39 PM CDT) Maria Alejandra, indirect Negative ABO Rh O Positive [facility] Blood 12/14/2024 1:39 PM CDT 12/14/2024 1:48 PM CDT Narrative [facility] - 12/14/2024 2:42 PM CDT Has the patient had Daratumumab or Isatuximab in the past 6 months?->Unknown Rebeca Atkins MD LAB BLOOD BANK TEST O RDERABLES Final Result [facility] One [facility] [place] [address] * (ABNORMAL) Comprehensive metabolic panel (12/14/2024 1:39 PM CDT) Sodium 138 135 - 145 mmol/L Potassium, pl 3.7 3.3 - 4.9 mmol/L [facility] Chloride 104 97 - 110 mmol/L [facility] CO2 26 22 - 32 mmol/L [facility] Anion gap 8 2 - 15 mmol/L [facility] BUN 6 6 - 25 mg/dL [facility] Creatinine 0.73 0.60 - 1.10 mg/dL [facility] Glucose 107 70 - 199 mg/dL [facility] Comment: Interpretive Data Fasting glucose >/= 126 [...] 2022. Calcium 8.7 8.5 - 10.3 mg/dL [facility] Bilirubin, total 1.8(H) 0.1 - 1.2 mg/dL [facility] Protein, pl 7.7 6.5 - 8.5 g/dL [facility] Albumin 3.3(L) 3.5 - 5.0 g/dL [facility] Alk phos 51 40 - 130 Units/L [facility] ALT 11 7 - 45 Units/L [facility] AST 28 10 - 45 Units/L [facility] Blood 12/14/2024 1:39 PM CDT 12/14/2024 1:55 PM CDT us Rebeca Atkins MD LAB BLOOD ORDERABLES Final Result [facility] One [facility] [place] [address] * CT Chest PE (CTA) Abdomen Pelvis W Contrast (12/12/2024 9:46 PM CDT) Anatomical Region Laterality Modality Body N/A Computed Tomogra phy 12/12/2024 10:5 1 PM CDT Addenda Addendum by Scarlet Maya MD on 01/12/2025 3:15 PM CDT Follow up LIMITED ( LEFT) RENAL SONOGRAM done on 12/15/24. Nicky QUIGLEY, RN. Edited by: Nicky Meza Electronically signed by: Scarlet Maya M.D. Impressions [...] of Race in Diagnosing Kidney Disease, JASN 202). The CKD-EPI equation should not be used for patients with unstable renal function and has not been validated in children and those over 70. Current interpretive data was last reviewed 2021. Blood 12/12/2024 7:32 PM CDT 12/12/2024 7:49 PM CDT us Ghada Madison MD LAB BLOOD ORDERABLES Final Re sult [facility] One [facility] [place] [address] * (ABNORMAL) CBC without differential (12/12/2024 7:32 PM CDT) WBC 10.02(H) 3.80 - 9.90 K/cumm Hgb 9.2(L) 11.9 - 15.5 g/dL [facility] Hct 27.3(L) 35.6 - 45.5 % [facility] Plt 412(H) 150 - 400 K/cumm [facility] [facility] MPV 9.1 9.1 - 12.3 fL [facility] RBC 3.12(L) 3.90 - 5.20 M/cumm [facility] MCV 87.5 81.3 - 96.4 fL [facility] MCH 29.5 27.1 - 33.3 pg [facility] MCHC 33.7 32.3 - 35.7 g/dL [facility] RDW CV 13.1 11.1 - 14.9 % [facility] RDW SD 40.2 35.7 - 48.1 fL [facility] NRBC abs 0.00 0.00 - 0.01 K/cumm [facility] Blood 12/12/2024 7:32 PM CDT 12/12/2024 7:50 PM CDT Ghada Madison MD LAB BLOOD ORDERABLES Final Re sult Performing Organization Address [facility] de Phone Number [facility] [place] [address] * (ABNORMAL) Hepatic function panel (12/12/2024 7:32 PM CDT) Bilirubin, total 2.1(H) 0.1 - 1.2 mg/dL Bilirubin, direct 0.4(H) 0.1 - 0.3 mg/dL [facility] Protein, pl 8.0 6.5 - 8.5 g/dL [facility] Albumin 3.9 3.5 - 5.0 g/dL [facility] Alk phos 49 40 - 130 Units/L [facility] ALT 13 7 - 45 Units/L [facility] AST 50(H) 10 - 45 Units/L [facility] Blood 12/12/2024 7:32 PM CDT 12/12/2024 7:49 PM CDT Ghada Madison MD LAB BLOOD ORDERABLES Final Re sult Performing Organization Address [facility] de Phone Number [facility] [place] [address] * Basic metabolic panel (12/12/2024 7:32 PM CDT) Sodium 141 135 - 145 mmol/L Potassium, pl 3.6 3.3 - 4.9 mmol/L [facility] Chloride 102 97 - 110 mmol/L [facility] CO2 29 22 - 32 mmol/L [facility] Anion gap 10 2 - 15 mmol/L [facility] BUN 12 6 - 25 mg/dL [facility] Creatinine 0.73 0.60 - 1.10 mg/dL [facility] Glucose 94 70 - 199 mg/dL [facility] Comment: Interpretive Data Fasting glucose >/= 126 [...] 2022. Calcium 9.5 8.5 - 10.3 mg/dL [facility] Blood 12/12/2024 7:32 PM CDT 12/12/2024 7:49 PM CDT Ghada Madison MD LAB BLOOD ORDERABLES Final Re sult [facility] [place] [address] * (ABNORMAL) POCT urinalysis (Clinitek) (12/12/2024 6:01 PM CDT) Color, ur, POC Kerry(A) Yellow Clarity, UA, POC Clear Clear [facility] Glucose, ur, POC Negative Negative [facility] Bilirubin, ur, POC Negative Negative [facility] Ketones, ur, POC Negative Negative [facility] Specific gravity, ur, POC 1.010 1.010 - 1.025 [facility] Blood, ur, POC Trace(A) Negative [facility] pH, ur, POC 6.5 [facility] Comment: Interpretive Data Urine pH is affected by diet, medications, systemic acid-base disturbances, and renal tubular function. pH may affect urinary stone formation. For example, urine pH below 6.0 may help reduce the tendency for calcium phosphate stones and pH greater than 6.0 may reduce the tendency for uric acid stone formation. Source: [employer] File[employer]. Last Revised Date: 08-16-2017 Protein, ur, POC 1+(A) Negative [facility] Urobilinogen, ur, POC 2.0 mg/dL(A) mg/dL [facility] Nitrites, ur, POC Negative Negative [facility] Leukocyte esterase, ur, POC Negative Negative [facility] Urine 12/12/2024 6:01 PM CDT 12/12/2024 6:01 PM CDT Ghada Madison MD LAB POCT ORDERABLES - DEVICE Final Result [facility] [place] [address] * Surgical pathology (12/04/2024 1:44 PM CDT) Tissue (Peritoneal Biopsy) 12/04/2024 1:44 PM CDT Tissue specimen (specimen) (Uterus with/without tubes & ovaries, Non-neoplastic) 12/04/2024 2:32 PM CDT Tissue specimen (specimen) (Peritoneal Biopsy) 12/04/2024 2:40 PM CDT Narrative PATHOLOGY [facility] - 12/15/2024 7:45 PM CDT EPIC results best viewed via link to PDF [facility] Rizwana Carrasco [facility] [place] [address] Note to Patients: This report may contain [...] Gender: F : 1975 (Age: 49) Address: [address] [place] [id number] [facility] #: [id number] Taken:12/04/2024 Received:12/04/2024 Reported: 12/15/2024 Patient Type: [facility] Service: Surgery Location: [facility] OR [facility] Physician(s): Edy Farley MD Diagnosis: A. Peritoneum, right pelvic nodule, [...] ureteral nodule, biopsy - Unremarkable fibroadipose tissue syja/12/08/2024 17:21 By this signature, I attest that [...] tubes. Submitted as follows. Jar 3. B1 Coroner/Medical Examiner anterior cervix, full thickness B2-B3 Coroner/Medical Examiner anterior endomyometrium, full thickness bisected B4 Coroner/Medical Examiner posterior cervix, full thickness B5-B6 Coroner/Medical Examiner posterior endomyometrium, full thickness bisected B7-B9 Coroner/Medical Examiner myometrial nodules B10 Coroner/Medical Examiner right adnexal soft tissue nodule, 2 sections B11 Entire fimbriae and sales representative metals fallopian tube 1 B12 Entire fimbriae and sales representative metals fallopian tube 2 C. Labeled left ureteral endometriosis nodule is a 1.1 x 1.0 x 0.3 cm dow-brown tissue fragment which is smooth on one side and cauterized on the opposing side. Sectioning reveals a 0.3 cm in greatest dimension dow-brown nodule. Entirely submitted in C1. Jar 0. dxb/12/05/2024 14:15 PA(s): Yung Mora Ten, PA(ASCP)CM By this signature, I attest that the above diagnosis is based upon my personal examination of the slides(and/or other material). Addenda/Procedures The performance characteristics of some immunohistochemical stains, fluorescence in-situ hybridization tests and immunophenotyping by flow cytometry cited in this report (if any) were determined by the Surgical Pathology and Flow Cytometry Departments at [facility] as part of an ongoing senior manager quality assurance program and in compliance with federally mandated [...] Surgical Pathology and Flow Cytometry Departments of [facility]. It has not been cleared or approved by the U. S. Food and Drug Administration. IMAGES AND SCANNED DOCUMENTS, IF INCLUDED, ONLY VIEWABLE IN PDF VERSION OF REPORT Ghada Madison MD LAB PATHOLOGY ORDERABLES Jory perez Result PATHOLOGY [facility] 3rd Floor [place], [place] [phone] * IN AN ELECTIVE ENDOTRACHEAL AIRWAY, IN AN PROCEDURE PLACEHOLDER (12/04/2024 11:51 AM CDT) Mihir Ferrer CRNA - 12/04/2024 11:51 AM CDT Mihir Stark CRNA 12/04/2024 11:51 AM Airway Patient location: OR Urgency: elective Indications for airway management: anesthesia Difficult airway: no Staff: Supervising provider: Sayda Lao DO Placed by: DIE CUTTER: Mihir Stark CRNA Emergent airway documentation: Risks [...] Alejandra, indirect Negative ABO Rh O Positive [facility] Blood 12/04/2024 9:57 AM CDT 12/04/2024 10:16 AM CDT Narrative [facility] - 12/04/2024 11:12 AM CDT Has the patient had Daratumumab or Isatuximab in the past 6 months?->Unknown us Belinda Seth DIRECTOR PATIENT ACCOUNTING LAB BLOOD BANK TEST ORDERA BLES Final Result [facility] [place] [address] * Screening Mammogram Bilateral W Santos (07/17/2024 8:01 AM MILK DELIVERER) Anatomical Region Laterality Modality Breast Bilateral Mammography Narrative 07/17/2024 3:52 PM MILK DELIVERER 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 Views obtained: bilateral craniocaudal and bilateral mediolateral oblique. Computer Aided Detection was performed. Mammogram Findings: The present examination has been compared to a prior imaging study performed at [facility] on 12/29/2020. There are scattered areas [...] to a prior imaging study performed at [facility] on 12/29/2020. There are scattered areas of fibroglandular density. There is no suspicious abnormality in either breast. Impression: There is no mammographic evidence of malignancy. Annual screening mammography is recommended. OVERALL FINAL ASSESSMENT: BI-RADS CATEGORY 1: Negative. us Self Screening Mammogram IMG MAMMO PROCEDURES Fi nal Result * (ABNORMAL) High Risk HPV DNA Detection with Genotyping (Molecular component) (07/02/2024 5:33 PM MILK DELIVERER) HPV HR 16 Not Detected Not Detected [facility] HPV HR 18 Not Detected Not Detected [facility] HPV HR Non 16/18 Detected(A) Not Detected [facility] Comment: Interpretive Data Nucleic acid amplification for [...] this test have been verified by the [facility] Molecular Infectious Disease laboratory. Correlate with separately reported cytology results, as applicable. Interpretive data last revised 23 Endocervical 07/02/2024 5:33 PM MILK DELIVERER 07/03/2024 8:49 AM MILK DELIVERER Narrative [facility] - 07/04/2024 8:34 PM MILK DELIVERER Clinical history and diagnosis->Routine screening pap smear Number of vials->1 Testing type->Screening Last menstrual period (date if known)->unknown Ghada Madison MD LAB BODY FLUIDS AND STOOLS OR DERABLES Final Result Performing Organization Address City/State/[facility] Co de Phone Number [facility] [place] [address] [facility] from Last 3 Months or Most Recently Relevant to [place] [address] [place] [address] [place] [address] LOC[employer] PL[place] Advance Directives For more information, please contact: [phone] * Full Code (Latest Code Status on File) Date Activated Date Inactivated Comments 12/14/2024 2:07 PM 12/17/2024 6:52 PM * Full Code Date Activated Date Inactivated Comments 06/27/2022 11:59 AM 06/28/2022 8:30 PM Care Teams Shactor Relationship Specialty Start Date End Date Ignacia Moran MD PCP - General Family Medicine 04/14/22
--- OUTSIDE RECORDS SUMMARY | 2025-03-06 09:02 | XMS_ITS | Encounter Summary ---
Author Organization [facility] Healthcare Address [address] [place] [address] Care Team Providers Care Glass Production Machine Operator Name Role Phone Ignacia Moran MD Primary Care Provi didier Encounter Details Date Type Department Care Team (Late st Contact Info) Description 01/13/2025 Results Follow-Up [facility] [address] [place] [address] Ghada Madison MD [address] [id number] Pelvis W Contrast Social History Tobacco Use Types Packs/Day Years [...] on file Legal Sex Female 6:56 PM TURNER IN Gender Identity Not on file Sexual Orientation Not on file documented as of this encounter Plan of Treatment Not on file documented as of this encounter Visit Diagnoses Not on filedocumented in this encounter Care Teams Glass Production Machine Operator Relationship Specialty Start Date End Date Ignacia Moran MD PCP - General Family Medicine 04/14/22 documented as of this encounter
[2025-03-06 09:03] VITALS: BP 143/84; PULSE 71; RESP 15; TEMP 36.5; O2SAT 100
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
--- OUTSIDE RECORDS SUMMARY | 2025-03-06 09:35 | XMS_ITS | Continuity of Care Document ---
Author Organization [facility] Address [address] [facility] [place] [address] [place] [address] Phone Care Team Providers Care Laundry Tech Name Role Phone Jaxon Collins MD Unavailable [...] - Active Procedures Procedure Date OFFICE/OUTPATIENT VISIT, [facility] PREV VISIT, NEW, AGE 40-64 OFFICE/OUTPATIENT VISIT, [facility] Advance Directives Directive Yes / No Effective Date File Name No Information Encounters Encounter Description Practice Location Reason(s) For Visit Diagnoses Date Provider Providers Copied on Encounter [facility], [address] [place], [id number], tel:[phone] [facility] Urinary tract infection Dennis Coates. [address], [place], [place], [id number] , [place]. tel:[phone] OFFICE/OUTPA TIENT VISIT, EST [facility], [address] [place], [place], [id number], tel:[phone] [facility] Medicine UTI1 (chief complaint) HTN (chief complaint) weight gain1 (chief complaint) Essential (primary) hypertensionAbnorma l weight gainUrinary tract infectionEncounter for oth screening for malignant neoplasm of breast 1 Dennis Coates. [address], [place], [place], [id number] , [place]. tel:[phone] PREV VISIT, NEW, AGE 40-64 [facility], [address], [place], [place], [id number], [place] tel:[phone] [facility] Medicine physical (chief complaint) Encounter for general adult medical exam w abnormal findingsEssential (primary) hypertensionAbnorma l weight gain 1 Dennis Coates. [address], [place], [place], [id number] , [place]. tel: [phone] Family History Family Member Type Diagnosis Age At Onset Mother Problem Obesity Brother Problem Alive and well Mother Problem Alive and well Father Problem prostate CA 70s Payers Payer name Insurance type Covered democrat ID Authoriza tion(s) No Information Social History [...] Date Complaint History Of Prese nt Illness UTI1 Pt denies any dy suria. Pt feels urinary urgency without frequency. pt notices cloudy urine as well. Pt does drink a lot of water Pt denies any pelvic pain or flank pain HTN Pt has not been checking her BP at home. Pt does have BP cuff at home .Pt denies any chest pain or headache. Pt has been diet and exercising. weight gain1 Pt is obese Pt f josef diet and exercise. Pt started biking recently. physical Pt needs annual physical. Pt is [...]
--- OUTSIDE RECORDS SUMMARY | 2025-03-06 09:35 | XMS_ITS | Clinical Summary ---
Author Organization [facility] Physician Office Building 2 Address [address] [place] [address] Care Team Providers Care Wig Sales Consultant Name Role Phone Ignacia Moran MD Primary [...] same. Assessment & Plan (08/25/2024 1:54 PM BOX BLANK MACHINE OPERATOR): - Discussed that abnormal uterine bleeding and [...] surgery Assessment & Plan (07/02/2024 5:49 PM BOX BLANK MACHINE OPERATOR): Abnormal uterine bleeding: - We discussed that [...] excess calories 1 08/27/2021 No diagnosis on [place] 05/25/2022 Morbid obesity 05/25/2022 GERD (gastroesophageal reflux disease) Primary hypertension 05/01/2022 Primary osteoarthritis of both knees 05/01/2022 BMI 45.0-49.9, adult 04/21/2022 Encounters Date Type Department Care Team Description 02/04/2025 3:45 PM CDT Office Visit [facility] Obstetrics and Gynecology [address] [place] [address] 7th Floor [address] [place] [phone] Ghada Madison MD Vaginal cuff cellulitis (Primary Dx) 01/14/2025 1:05 PM CDT Lab [facility] [address] [place] [address] Vaginal cuff cellulitis; Abnormal uterine bleeding 01/14/2025 12:15 PM CDT Office Visit [facility] Obstetrics and Gynecology [address] [place] [address] 7th Floor [address] [place] [phone] Ghada Madison MD Vaginal cuff cellulitis (Primary Dx) 01/14/2025 Results Follow-Up [address] [phone] Ghada Madison MD CBC without differential 01/13/[address] [phone] Ghada Madison MD 01/13/2025 Results Follow-Up [address] [place] [address] Pelvis W Contrast 01/12/2025 3:24 PM CDT - 01/12/2025 11:59 PM CDT Hospital Encounter [facility] [address] [place] [address] Post-operative state; Pelvic pain Discharge Disposition: Discharge to home or self care 01/06/2025 Orders Only [facility] Obstetrics and Gynecology [address] [place] [address] 7th Floor [address] [place] [address] Ghada Madison MD Post-operative state (Primary Dx); Pelvic pain 12/30/2024 12:45 PM CDT Office Visit [facility] Obstetrics and Gynecology [address] [place] [address] 7th Floor [address] [place] [address] Ghada Madison MD Post-operative state (Primary Dx) 12/23/2024 Telephone [facility] Obstetrics and Gynecology [address] [place] [address] 7th Floor [address] [place] [address] Alonso Lugo, CASSIDY Appointment 12/18/2024 Results Follow-Up [address] [address] Ghada Madison MD Aerobic and anaerobic culture and gram stain Abscess Vaginal 12/14/2024 10:14 PM CDT Anesthesia Event [facility] Operating Room [address] [place] [address] Shirlene Becker MD Gillespie, Julie Beth Marie, MD 12/14/2024 8:00 PM CDT - 12/14/2024 10:15 PM CDT Surgery [facility] Operating Room [address] [place] [address] Ghada Madison MD EXAM UNDER ANESTHESIA WITH VAGINAL CUFF REPAIR 12/14/2024 12:07 PM CDT - 12/17/2024 2:51 PM CDT Hospital Encounter [facility] [address] [place] [address] Rebeca Atkins MD Mitchell, Nicky Singh MD Vaginal cuff dehiscence, initial encounter (Primary Dx); Post-operative state Discharge Disposition: Discharge to home or self care 12/12/2024 5:34 PM CDT - 12/13/2024 1:10 AM CDT Hospital Encounter [facility] [address] [place] [address] Ghada Madison MD Abnormal uterine bleeding (Primary Dx) Discharge Disposition: Discharge to home or self care 12/12/2024 Telephone [facility] Obstetrics and Gynecology [facility] 7th Floor [address] [place] [address] Alonso Lugo RN Post-op 12/04/2024 11:16 AM CDT Anesthesia Event [facility] Operating Room [address] [place] [address] Sayda Lao DO Montgomery, Andrea J., NP 12/04/2024 11:00 AM CDT - 12/04/2024 3:10 PM CDT Surgery [facility] Operating Room [address] [place] [address] Ghada Madison MD LAPAROSCOPIC TOTAL HYSTERECTOMY 12/04/2024 9:07 AM CDT - 12/04/2024 6:58 PM CDT Hospital Encounter [facility] Operating Room [address] [place] [address] Ghada Madison MD Abnormal uterine bleeding; Adenomyosis [...] on file Legal Sex Female 6:56 PM BOX BLANK MACHINE OPERATOR Gender Identity Not on file Sexual Orientation [...] 44 PM CDT Abnormal uterine bleeding Adenomyosis [place] AN PROCEDURE PLACEHOLDER Routine 12/04/2024 11:51 AM CDT [place] AN ELECTIVE ENDOTRACHEAL AIRWAY Routine 12/04/2024 11:51 [...] Read Routine (OP Routine) 07/17/2024 8:01 AM BOX BLANK MACHINE OPERATOR Screening mammogram, encounter for HIGH RISK HPV DNA DETECTION WITH GENOTYPING Routine 07/02/2024 5:33 PM BOX BLANK MACHINE OPERATOR Abnormal uterine bleeding from Last 3 Months [...] MD LAB BLOOD ORDERABLES Final Re sult [facility] [place] [address] * CBC without differential (01/14/2025 1:09 PM CDT) WBC 4.42 3.80 - 9.90 K/cumm Hgb 12.2 11.9 - 15.5 g/dL [facility] Hct 36.0 35.6 - 45.5 % [facility] Plt 219 150 - 400 K/cumm [facility] MPV 10.0 9.1 - 12.3 fL [facility] RBC 4.28 3.90 - 5.20 M/cumm [facility] MCV 84.1 81.3 - 96.4 fL [facility] MCH 28.5 27.1 - 33.3 pg [facility] MCHC 33.9 32.3 - 35.7 g/dL [facility] RDW CV 14.6 11.1 - 14.9 % [facility] RDW SD 45.0 35.7 - 48.1 fL [facility] NRBC abs 0.00 0.00 - 0.01 K/cumm [facility] Blood 01/14/2025 1:09 PM CDT 01/14/2025 1:38 PM CDT Ghada Madison MD LAB BLOOD ORDERABLES Final Re sult [facility] [place] [address] * (ABNORMAL) Comprehensive metabolic panel (01/14/2025 1:09 PM CDT) Sodium 141 135 - 145 mmol/L Potassium, pl 4.1 3.3 - 4.9 mmol/L [facility] Chloride 107 97 - 110 mmol/L [facility] CO2 30 22 - 32 mmol/L [facility] Anion gap 4 2 - 15 mmol/L [facility] BUN 5(L) 6 - 25 mg/dL [facility] Creatinine 0.67 0.60 - 1.10 mg/dL [facility] Glucose 87 70 - 199 mg/dL [facility] Comment: Interpretive Data Fasting glucose >/= 126 [...] Calcium 9.5 8.5 - 10.3 mg/dL [facility] Bilirubin, total 0.5 0.1 - 1.2 mg/dL [facility] Protein, pl 7.6 6.5 - 8.5 g/dL [facility] Albumin 3.9 3.5 - 5.0 g/dL [facility] Alk phos 52 40 - 130 Units/L [facility] ALT 11 7 - 45 Units/L [facility] AST 14 10 - 45 Units/L [facility] Blood 01/14/2025 1:09 PM CDT 01/14/2025 1:38 PM CDT us Ghada Madison MD LAB BLOOD ORDERABLES Final Re sult [facility] [place] [address] * CT Pelvis W Contrast (01/12/2025 3:52 [...] Atkins MD LAB BLOOD ORDERABLES Final Result [facility] Department of Laboratories [place], [place] [id number] * (ABNORMAL) CBC without differential (12/17/2024 5:48 AM CDT) WBC 7.66 3.80 - 9.90 K/cumm Hgb 8.7(L) 11.9 - 15.5 g/dL [facility] Hct 26.1(L) 35.6 - 45.5 % [facility] Plt 411(H) 150 - 400 K/cumm [facility] MPV 9.3 9.1 - 12.3 fL [facility] RBC 2.99(L) 3.90 - 5.20 M/cumm [facility] MCV 87.3 81.3 - 96.4 fL [facility] MCH 29.1 27.1 - 33.3 pg [facility] MCHC 33.3 32.3 - 35.7 g/dL [facility] RDW CV 13.6 11.1 - 14.9 % [facility] RDW SD 42.1 35.7 - 48.1 fL [facility] NRBC abs 0.00 0.00 - 0.01 K/cumm [facility] Blood 12/17/2024 5:48 AM CDT 12/17/2024 6:17 AM CDT us Rebeca Atkins MD LAB BLOOD ORDERABLES Final Result [facility] [place] [address] * (ABNORMAL) Comprehensive metabolic panel (12/17/2024 5:48 AM CDT) Sodium 141 135 - 145 mmol/L Potassium, pl 3.8 3.3 - 4.9 mmol/L [facility] Chloride 104 97 - 110 mmol/L [facility] CO2 27 22 - 32 mmol/L [facility] Anion gap 10 2 - 15 mmol/L [facility] BUN 4(L) 6 - 25 mg/dL [facility] Creatinine 0.63 0.60 - 1.10 mg/dL [facility] Glucose 91 70 - 199 mg/dL [facility] Comment: Interpretive Data Fasting glucose >/= 126 [...] Calcium 8.7 8.5 - 10.3 mg/dL [facility] Bilirubin, total 0.9 0.1 - 1.2 mg/dL [facility] Protein, pl 7.1 6.5 - 8.5 g/dL [facility] Albumin 3.1(L) 3.5 - 5.0 g/dL [facility] Alk phos 53 40 - 130 Units/L [facility] ALT 7 7 - 45 Units/L [facility] AST 19 10 - 45 Units/L [facility] Blood 12/17/2024 5:48 AM CDT 12/17/2024 6:17 AM CDT Rebeca Atkins MD LAB BLOOD ORDERABLES Final Result [facility] [place] [address] * eGFR (12/16/2024 4:46 AM CDT) eGFR [...] Atkins MD LAB BLOOD ORDERABLES Final Result [facility] [place] [address] * (ABNORMAL) CBC without differential (12/16/2024 4:46 AM CDT) WBC 7.34 3.80 - 9.90 K/cumm Hgb 7.6(L) 11.9 - 15.5 g/dL [facility] Hct 22.5(L) 35.6 - 45.5 % [facility] Plt 365 150 - 400 K/cumm [facility] MPV 9.3 9.1 - 12.3 fL [facility] RBC 2.60(L) 3.90 - 5.20 M/cumm [facility] MCV 86.5 81.3 - 96.4 fL [facility] MCH 29.2 27.1 - 33.3 pg [facility] MCHC 33.8 32.3 - 35.7 g/dL [facility] RDW CV 13.5 11.1 - 14.9 % [facility] RDW SD 42.2 35.7 - 48.1 fL [facility] NRBC abs 0.00 0.00 - 0.01 K/cumm [facility] Blood 12/16/2024 4:46 AM CDT 12/16/2024 5:48 AM CDT us Rebeca Atkins MD LAB BLOOD ORDERABLES Final Result [facility] [place] [address] * (ABNORMAL) Comprehensive metabolic panel (12/16/2024 4:46 AM CDT) Pathologist [facility] Sodium 141 135 - 145 mmol/L Potassium, pl 3.7 3.3 - 4.9 mmol/L [facility] Chloride 105 97 - 110 mmol/L [facility] CO2 29 22 - 32 mmol/L [facility] Anion gap 7 2 - 15 mmol/L [facility] BUN 6 6 - 25 mg/dL [facility] Creatinine 0.66 0.60 - 1.10 mg/dL [facility] Glucose 95 70 - 199 mg/dL [facility] Comment: Interpretive Data Fasting glucose >/= 126 [...] 2022. Calcium 8.4(L) 8.5 - 10.3 mg/dL [facility] Bilirubin, total 0.9 0.1 - 1.2 mg/dL [facility] Protein, pl 6.7 6.5 - 8.5 g/dL [facility] Albumin 3.0(L) 3.5 - 5.0 g/dL [facility] Alk phos 48 40 - 130 Units/L [facility] ALT 11 7 - 45 Units/L [facility] AST 18 10 - 45 Units/L [facility] Blood 12/16/2024 4:46 AM CDT 12/16/2024 5:48 AM CDT us Rebeca Atkins MD LAB BLOOD ORDERABLES Final Result [facility] Department [place] [address] * [employer] (12/15/2024 3:57 PM [...] signed by: Rachna Álvarez M.D. us Rebeca tAkins MD IMG US PROCEDURES Fin al Result [...] Atkins MD LAB BLOOD ORDERABLES Final Result [facility] [place] [address] * (ABNORMAL) CBC without differential (12/15/2024 4:49 AM CDT) WBC 7.79 3.80 - 9.90 K/cumm Hgb 7.2(L) 11.9 - 15.5 g/dL [facility] Hct 21.6(L) 35.6 - 45.5 % [facility] Plt 316 150 - 400 K/cumm [facility] MPV 9.5 9.1 - 12.3 fL [facility] RBC 2.50(L) 3.90 - 5.20 M/cumm [facility] MCV 86.4 81.3 - 96.4 fL [facility] MCH 28.8 27.1 - 33.3 pg [facility] MCHC 33.3 32.3 - 35.7 g/dL [facility] RDW CV 13.3 11.1 - 14.9 % [facility] RDW SD 41.3 35.7 - 48.1 fL [facility] NRBC abs 0.00 0.00 - 0.01 K/cumm [facility] Blood 12/15/2024 4:49 AM CDT 12/15/2024 6:43 AM CDT us Rebeca Atkins MD LAB BLOOD ORDERABLES Final Result [facility] [place] [address] * (ABNORMAL) Comprehensive metabolic panel (12/15/2024 4:49 AM CDT) Sodium 142 135 - 145 mmol/L Potassium, pl 3.6 3.3 - 4.9 mmol/L [facility] Chloride 105 97 - 110 mmol/L [facility] CO2 28 22 - 32 mmol/L [facility] Anion gap 9 2 - 15 mmol/L [facility] BUN 7 6 - 25 mg/dL [facility] Creatinine 0.72 0.60 - 1.10 mg/dL [facility] Glucose 94 70 - 199 mg/dL [facility] Comment: Interpretive Data Fasting glucose >/= 126 [...] 2022. Calcium 8.2(L) 8.5 - 10.3 mg/dL [facility] Bilirubin, total 1.2 0.1 - 1.2 mg/dL [facility] Protein, pl 6.6 6.5 - 8.5 g/dL [facility] Albumin 2.9(L) 3.5 - 5.0 g/dL [facility] Alk phos 46 40 - 130 Units/L [facility] ALT 8 7 - 45 Units/L [facility] AST 18 10 - 45 Units/L [facility] Blood 12/15/2024 4:49 AM CDT 12/15/2024 5:34 AM CDT Rebeca Atkins MD LAB BLOOD ORDERABLES Final Result [facility] [place] [address] * (ABNORMAL) Aerobic and anaerobic culture and gram stain Abscess Vaginal (12/14/2024 11:20 PM CDT) Direct Specimen Exam Stain: Rare polymorphonuclear leukocytes seen. Few Gram Positive Bacilli Rare Gram Negative Bacilli Report Final Report: Moderate Escherichia coli Rare Finegoldia magna (.) [facility] Organism ESCHERICHIA COLI [facility] Organism FINEGOLDIA MAGNA [facility] Abscess (Vaginal) 12/14/2024 11:20 PM CDT 12/15/2024 8:38 AM CDT Narrative [facility] - 12/18/2024 10:27 AM CDT Vaginal cuff fluid collection Specimen received on an ESwab. Testing performed by [facility] Microbiology Laboratory ([phone]) Specimens submitted from normally sterile body sites [...] MICROBIOLOGY - GENERAL OR DERABLES Final Result [facility] [place] [address] * Blood culture Blood (12/14/2024 5:08 PM CDT) Report Final Report: No growth Blood 12/14/2024 5:08 PM CDT 12/14/2024 6:03 PM CDT Narrative [facility] - 12/19/2024 7:00 AM CDT Collection->Peripheral [...] performance characteristics have been verified by the [facility] Microbiology Laboratory. For questions about this culture, contact the Microbiology Laboratory at [phone]. Interpretive data was last revised on 24. us Rebeca Atkins MD LAB MICROBIOLOGY - GE NERAL ORDERABLES Final Result [facility] [place] [address] * Blood culture Blood (12/14/2024 5:08 PM CDT) Report Final Report: No growth Blood 12/14/2024 5:08 PM CDT 12/14/2024 6:03 PM CD[address] - 12/19/2024 7:00 AM CDT Collection->Peripheral [...] performance characteristics have been verified by the [facility]biology [facility]. For questions about this culture, contact the Microbiology Laboratory at [phone]. Interpretive data was last revised on 24. Rebeca Atkins MD LAB MICROBIOLOGY - [facility] ORDERABLES Final Result [facility] [place] [address] * (ABNORMAL) Urinalysis reflex to microscopic and culture Urine, clean voided (12/14/2024 3:34 PM CDT) Color, ur Yellow Yellow Clarity, ur Cloudy(A) Clear [facility] Specific gravity, ur 1.018 1.003 - 1.030 [facility] pH, urine 6.5 [facility] Comment: Interpretive Data U rine pH is affected by diet, medications, systemic acid-base disturbances, and renal tubular function. pH may affect urinary stone formation. For example, urine pH below 6.0 may help reduce the tendency for calcium phosphate stones and pH greater than 6.0 may reduce the tendency for uric acid stone formation. Source: [facility] Current Interpretive Data was last revised on 2017 Protein, ur ql Trace Negative [facility] Glucose, ur ql Negative Negative [facility] Ketones, ur Negative Negative [facility] Bilirubin, ur Negative Negative [facility] Blood, ur Negative Negative [facility] Urobilinogen, ur >=8.0(A) <2.0 mg/dL [facility] Nitrite, ur Negative Negative [facility] Leukocyte esterase, ur 2+(A) Negative [facility] UA reflex comment Reflex to microscopic UA will be performed. [facility] Urine, clean voided 12/14/2024 3:34 PM CDT 12/14/2024 3:43 PM CDT us Rebeca Atkins MD LAB MICROBIOLOGY - NERAL ORDERABLES Final Result Performing Organization Address City/[facility]/ZIP Co de Phone Number [facility] [place] [address] * Urinalysis, microscopic only (12/14/2024 3:34 PM CDT) WBC, ur 0-5 0 - 5 /HPF RBC, ur 0-2 0 - 2 /HPF [facility] Culture Reflex Comment Reflex conditions for urine culture (WBC >10) not met. [facility] Urine, clean voided 12/14/2024 3:34 PM CDT 12/14/2024 3:43 PM CDT us Rebeca Atkins MD LAB URINE ORDERABLES Final Result Performing Organization Address City/[facility]/ZIP Co de Phone Number [facility] [place] [address] * Lactate (12/14/2024 1:39 PM CDT) Lactate 1.0 0.7 - 2.0 mmol/L Blood 12/14/2024 1:39 PM CDT 12/14/2024 1:55 PM CDT Rebeca Atkins MD LAB BLOOD ORDERABLES Final Result [facility] [place] [address] * eGFR (12/14/2024 1:39 PM CDT) eGFR [...] MD LAB BLOOD ORDERABLES Final Result [facility] [place] [address] * (ABNORMAL) CBC without differential (12/14/2024 1:39 PM CDT) WBC 9.39 3.80 - 9.90 K/cumm Hgb 8.9(L) 11.9 - 15.5 g/dL [facility] Hct 26.6(L) 35.6 - 45.5 % [facility] Plt 392 150 - 400 K/cumm [facility] MPV 9.0(L) 9.1 - 12.3 fL [facility] RBC 3.05(L) 3.90 - 5.20 M/cumm [facility] MCV 87.2 81.3 - 96.4 fL [facility] MCH 29.2 27.1 - 33.3 pg [facility] MCHC 33.5 32.3 - 35.7 g/dL [facility] RDW CV 13.4 11.1 - 14.9 % [facility] RDW SD 41.7 35.7 - 48.1 fL [facility] NRBC abs 0.00 0.00 - 0.01 K/cumm [facility] Blood 12/14/2024 1:39 PM CDT 12/14/2024 1:55 PM CDT us Rebeca Atkins MD LAB BLOOD ORDERABLES Final Result Performing Organization Address [facility] Co de Phone Number [facility] [place] [address] * Type and screen (12/14/2024 1:39 PM CDT) Maria Alejandra, indirect Negative ABO Rh O Positive [facility] Blood 12/14/2024 1:39 PM CDT 12/14/2024 1:48 PM CDT Narrative [facility] - 12/14/2024 2:42 PM CDT Has the patient had Daratumumab or Isatuximab in the past 6 months?->Unknown Rebeca Atkins MD LAB BLOOD BANK TEST O RDERABLES Final Result Performing Organization Address City/[facility]/ZIP Co de Phone Number [facility] [place] [address] * (ABNORMAL) Comprehensive metabolic panel (12/14/2024 1:39 PM CDT) Sodium 138 135 - 145 mmol/L Potassium, pl 3.7 3.3 - 4.9 mmol/L [facility] Chloride 104 97 - 110 mmol/L [facility] CO2 26 22 - 32 mmol/L [facility] Anion gap 8 2 - 15 mmol/L [facility] BUN 6 6 - 25 mg/dL [facility] Creatinine 0.73 0.60 - 1.10 mg/dL [facility] Glucose 107 70 - 199 mg/dL [facility] Comment: Interpretive Data Fasting glucose >/= 126 [...] 2022. Calcium 8.7 8.5 - 10.3 mg/dL [facility] Bilirubin, total 1.8(H) 0.1 - 1.2 mg/dL [facility] Protein, pl 7.7 6.5 - 8.5 g/dL [facility] Albumin 3.3(L) 3.5 - 5.0 g/dL [facility] Alk phos 51 40 - 130 Units/L [facility] ALT 11 7 - 45 Units/L [facility] AST 28 10 - 45 Units/L [facility] Blood 12/14/2024 1:39 PM CDT 12/14/2024 1:55 PM CDT us Rebeca Atkins MD LAB BLOOD ORDERABLES Final Result [facility] Department [place] [address] * CT Chest PE (CTA) Abdomen Pelvis W Contrast (12/12/2024 9:46 PM CDT) Anatomical Region Laterality Modality Body N/A Computed Tomogra phy 12/12/2024 10:5 1 PM CDT Addenda Addendum by Scarlet Maya MD on 01/12/2025 3:15 PM CDT Follow up LIMITED ( LEFT) RENAL SONOGRAM done on 12/15/24. Nicky QUIGLEY, CASSIDY. Edited by: Nicky Meza Electronically signed by: [...] ORDERABLES Final Re sult Performing Organization Address City/[facility]/ZIP Co de Phone Number [facility] [place] [address] * (ABNORMAL) CBC without differential (12/12/2024 7:32 PM CDT) Pathologist [facility] WBC 10.02(H) 3.80 - 9.90 K/cumm Hgb 9.2(L) 11.9 - 15.5 g/dL [facility] Hct 27.3(L) 35.6 - 45.5 % [facility] Plt 412(H) 150 - 400 K/cumm [facility] MPV 9.1 9.1 - 12.3 fL [facility] RBC 3.12(L) 3.90 - 5.20 M/cumm [facility] MCV 87.5 81.3 - 96.4 fL [facility] MCH 29.5 27.1 - 33.3 pg [facility] MCHC 33.7 32.3 - 35.7 g/dL [facility] RDW CV 13.1 11.1 - 14.9 % [facility] RDW SD 40.2 35.7 - 48.1 fL [facility] NRBC abs 0.00 0.00 - 0.01 K/cumm [facility] Blood 12/12/2024 7:32 PM CDT 12/12/2024 7:50 PM CDT Ghada Madison MD LAB BLOOD ORDERABLES Final Re sult [facility] [place] [address] * (ABNORMAL) Hepatic function panel (12/12/2024 7:32 PM CDT) Pathologist [facility] Bilirubin, total 2.1(H) 0.1 - 1.2 mg/dL Bilirubin, direct 0.4(H) 0.1 - 0.3 mg/dL [facility] Protein, pl 8.0 6.5 - 8.5 g/dL [facility] Albumin 3.9 3.5 - 5.0 g/dL [facility] Alk phos 49 40 - 130 Units/L [facility] ALT 13 7 - 45 Units/L [facility] AST 50(H) 10 - 45 Units/L [facility] Blood 12/12/2024 7:32 PM CDT 12/12/2024 7:49 PM CDT Ghada Madison MD LAB BLOOD ORDERABLES Final Re sult [facility] [place] [address] * Basic metabolic panel (12/12/2024 7:32 PM CDT) Pathologist [facility] Sodium 141 135 - 145 mmol/L Potassium, pl 3.6 3.3 - 4.9 mmol/L [facility] Chloride 102 97 - 110 mmol/L [facility] CO2 29 22 - 32 mmol/L [facility] Anion gap 10 2 - 15 mmol/L [facility] BUN 12 6 - 25 mg/dL [facility] Creatinine 0.73 0.60 - 1.10 mg/dL [facility] Glucose 94 70 - 199 mg/dL [facility] Comment: Interpretive Data Fasting glucose >/= 126 [...] 2022. Calcium 9.5 8.5 - 10.3 mg/dL [facility] Blood 12/12/2024 7:32 PM CDT 12/12/2024 7:49 PM CDT Ghada Madison MD LAB BLOOD ORDERABLES Final Re sult Performing Organization Address City/[facility]/ZIP Co de Phone Number [facility] [place] [address] * (ABNORMAL) POCT urinalysis (Clinitek) (12/12/2024 6:01 PM CDT) Color, ur, POC Kerry(A) Yellow Clarity, UA, POC Clear Clear [facility] Glucose, ur, POC Negative Negative [facility] Bilirubin, ur, POC Negative Negative [facility] Ketones, ur, POC Negative Negative [facility] Specific gravity, ur, POC 1.010 1.010 - 1.025 [facility] Blood, ur, POC Trace(A) Negative [facility] pH, ur, POC 6.5 [facility] Comment: Interpretive Data Urine pH is affected by diet, medications, systemic acid-base disturbances, and renal tubular function. pH may affect urinary stone formation. For example, urine pH below 6.0 may help reduce the tendency for calcium phosphate stones and pH greater than 6.0 may reduce the tendency for uric acid stone formation. Source: [facility] [place]. Last Revised Date: 08-16-2017 Protein, ur, POC 1+(A) Negative [facility] Urobilinogen, ur, POC 2.0 mg/dL(A) mg/dL [facility] Nitrites, ur, POC Negative Negative [facility] Leukocyte esterase, ur, POC Negative Negative [facility] Urine 12/12/2024 6:01 PM CDT 12/12/2024 6:01 PM CDT Ghada Madison MD LAB POCT ORDERABLES - DEVICE Final Result Performing Organization Address City/[facility]/ZIP Co de Phone Number [facility] [place] [address] * Surgical pathology (12/04/2024 1:44 PM CDT) Tissue (Peritoneal Biopsy) 12/04/2024 1:44 PM CDT Tissue specimen (specimen) (Uterus with/without tubes & ovaries, Non-neoplastic) 12/04/2024 2:32 PM CDT Tissue specimen (specimen) (Peritoneal Biopsy) 12/04/2024 2:40 PM CDT Narrative PATHOLOGY [facility] - 12/15/2024 7:45 PM CDT EPIC results best viewed via link to PDF [facility] [place] [address] Note to Patients: This report may contain [...] Gender: F : 1975 (Age: 49) Address: [address] [place] [id number] Hospital #: [id number] Taken:12/04/2024 Received:12/04/2024 Reported: 12/15/2024 Patient Type: [facility] Service: Surgery Location: [facility] OR POD1 Physician(s): Ghada Madison M.D. [...] tubes. Submitted as follows. Jar 3. B1 Senior Pensions Administrator anterior cervix, full thickness B2-B3 Senior Pensions Administrator anterior endomyometrium, full thickness bisected B4 Senior Pensions Administrator posterior cervix, full thickness B5-B6 Senior Pensions Administrator posterior endomyometrium, full thickness bisected B7-B9 Senior Pensions Administrator myometrial nodules B10 Senior Pensions Administrator right adnexal soft tissue nodule, 2 sections B11 Entire fimbriae and account representative fallopian tube 1 B12 Entire fimbriae and account representative fallopian tube 2 C. Labeled left [...] Surgical Pathology and Flow Cytometry Departments at [facility] as part of an ongoing quality liaison program and in compliance with federally mandated [...] Surgical Pathology and Flow Cytometry Departments of [facility]. It has not been cleared or approved by the U. S. Food and Drug Administration. IMAGES AND SCANNED DOCUMENTS, IF INCLUDED, ONLY VIEWABLE IN PDF VERSION OF REPORT Ghada Madison MD LAB PATHOLOGY ORDERABLES Jory perez Result PATHOLOGY [facility] 3rd Floor [place], [place] [phone] * [place] AN ELECTIVE ENDOTRACHEAL AIRWAY, [place] AN PROCEDURE PLACEHOLDER (12/04/2024 11:51 AM CDT) Narrative Mihir Stark CRNA - 12/04/2024 11:51 AM CDT Mihir Stark CRNA 12/04/2024 11:51 AM Airway Patient location: OR Urgency: elective Indications for airway management: anesthesia Difficult airway: no Staff: Supervising provider: Sayda Lao DO Placed by: ROAD TESTER: Mihir Stark CRNA Emergent airway documentation: Risks [...] Alejandra, indirect Negative ABO Rh O Positive [facility] Blood 12/04/2024 9:57 AM CDT 12/04/2024 10:16 AM CDT Narrative [facility] - 12/04/2024 11:12 AM CDT Has the patient had Daratumumab or Isatuximab in the past 6 months?->Unknown us Belinda Seth AUTOMATIC EMBROIDERY MACHINE TENDER LAB BLOOD BANK TEST ORDERA BLES Final Result [facility] [place] [address] * Screening Mammogram Bilateral W Santos (07/17/2024 8:01 AM BOX BLANK MACHINE OPERATOR) Anatomical Region Laterality Modality Breast Bilateral Mammography Narrative 07/17/2024 3: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 Views obtained: bilateral craniocaudal and bilateral mediolateral oblique. Computer Aided Detection was performed. Mammogram Findings: The present examination has been compared to a prior imaging study performed at [facility] on 12/29/2020. There are scattered areas of [...] to a prior imaging study performed at [facility] on 12/29/2020. There are scattered areas of fibroglandular density. There is no suspicious abnormality in either breast. Impression: There is no mammographic evidence of malignancy. Annual screening mammography is recommended. OVERALL FINAL ASSESSMENT: BI-RADS CATEGORY 1: Negative. 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 Comment: Interpretive Data Nucleic acid amplification [...] this test have been verified by the [facility] Molecular Infectious Disease laboratory. Correlate with separately reported cytology results, as applicable. 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 07/03/2024 8:49 AM BOX BLANK MACHINE OPERATOR Narrative [facility] - 07/04/2024 8:34 PM BOX BLANK MACHINE OPERATOR Clinical history and diagnosis->Routine screening pap smear Number of vials->1 Testing type->Screening Last menstrual period (date if known)->unknown Ghada Madison MD LAB BODY FLUIDS AND STOOLS OR DERABLES Final Result [facility] [place] [address] [facility] from Last 3 Months or Most Recently Relevant to [place] [address] [facility] [place] [address] [place] [address] LOCAL PLUS Advance Directives For more information, please contact: [phone] * Full Code (Latest Code Status on File) Date Activated Date Inactivated Comments 12/14/2024 2:07 PM 12/17/2024 6:52 PM * Full Code Date Activated Date Inactivated Comments 06/27/2022 11:59 AM 06/28/2022 8:30 PM Care Teams Wig Sales Consultant Relationship Specialty Start Date End Date Ignacia Moran MD PCP - General Family Medicine 04/14/22
--- OUTSIDE RECORDS SUMMARY | 2025-03-06 09:35 | XMS_ITS | Encounter Summary ---
Author Organization [facility] Healthcare Address [address] [place] [address] Care Team Providers Care Transformation Lead Name Role Phone Sophia Mai MD Primary Care Provider [phone] Reason for Visit * Diagnostic Imaging (Routine) - Pending Review Specialty Diagnoses / Procedures Referred By Makayla sahu Referred To Contact Procedures Breast Imaging Screening Outside Reference Transcribed Order, Provider Referral ID Status Reason Start Date Expiration Date V isits Requested Visits Authorized [id number] Pending Review 06/27/2024 07/27/2025 1 1 Encounter Details Date Type Department Care Team (Late st Contact Info) Description 12/29/2020 Hospital Encounter [facility] [address] [place], [place] [phone] Social History Tobacco Use Types Packs/Day Years [...] on file Legal Sex Female 6:56 PM MODEL MAKER 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 There will be no report generated by a [facility] Radiologist. Narrative [facility] - 06/27/2024 9:22 AM MODEL MAKER SCALE EXAMINATION: Images For Reference Purposes Only us [...] documented as of this encounter Care Teams Transformation Lead Relationship Specialty Start Date End Date Sophia Mai MD [address] [place] [address] PCP - General Internal Medicine 04/30/19 02/06/22 documented as of this encounter
--- OUTSIDE RECORDS SUMMARY | 2025-03-06 09:35 | XMS_ITS | Encounter Summary ---
Author Organization [facility] Healthcare Address [address] [place] [address] Care Team Providers Care Physician Intensivist Name Role Phone Ignacia Moran MD Primary Care Provi didier Encounter Details Date Type Department Care Team (Latest Contact Info) Description 01/14/2025 Results Follow-Up [facility] [address] [place] [address] Ghada Madison MD [address] [phone] CBC without differential Social History Tobacco Use [...] on file Legal Sex Female 6:56 PM ENTRY LEVEL Gender Identity Not on file Sexual Orientation Not on file documented as of this encounter Plan of Treatment Not on file documented as of this encounter Visit Diagnoses Not on filedocumented in this encounter Care Teams Physician Intensivist Relationship Specialty Start Date End Date Ignacia Moran MD PCP - General Family Medicine 04/14/22 documented as of this encounter
--- OUTSIDE RECORDS SUMMARY | 2025-03-06 09:35 | XMS_ITS | Referral Summary ---
Author Organization [facility] Physician Office Building [address] [place] [phone] Care Team Providers Care Family Law Paralegal Name Role Phone Ignacia Moran MD Primary Care Provi didier Encounters Date Type Department Care Team Description 02/04/2025 3:45 PM CDT Office Visit [facility] Obstetrics and Gynecology [address] [place] [address] 7th Floor [address] [place] [phone] Ghada Madison MD Vaginal cuff cellulitis (Primary Dx) 01/14/2025 Results Follow-Up [address] [phone] Ghada Madison MD CBC without differential 01/14/2025 1:05 PM CDT Lab [facility] [address] [place] [address] [place] [address] Vaginal cuff cellulitis; Abnormal uterine bleeding 01/14/2025 12:15 PM CDT Office Visit [facility] Obstetrics and Gynecology [address] [place] [address] 7th Floor [address] [place] [phone] Ghada Madison MD Vaginal cuff cellulitis (Primary Dx) 01/13/[address] [phone] Ghada Madison MD 01/13/2025 Results Follow-Up [address] [phone] Pelvis W Contrast 01/12/2025 3:24 PM CDT - 01/12/2025 11:59 PM CDT Hospital Encounter [facility] [address] [place] [address] Post-operative state; Pelvic pain Discharge Disposition: Discharge to home or self care 01/06/2025 Orders Only [facility] Obstetrics and Gynecology [address] [place] [address] 7th Floor [address] [place] [phone] Ghada Madison MD Post-operative state (Primary Dx); Pelvic pain 12/30/2024 12:45 PM CDT Office Visit [facility] Obstetrics and Gynecology [address] [place] [address] 7th Floor [address] [place] [phone] Ghada Madison MD Post-operative state (Primary Dx) 12/23/2024 Telephone [facility] Obstetrics and Gynecology [address] [facility] 7th Floor [address] [place] [phone] Alonso Lugo, RN Appointment 12/18/2024 Results Follow-Up [address] [phone] Ghada Madison MD Aerobic and anaerobic culture and gram stain Abscess Vaginal 12/14/2024 12:07 PM CDT - 12/17/2024 2:51 PM CDT Hospital Encounter [address] [phone] Rebeca Atkins MD Mitchell, Nicky Singh MD Vaginal cuff dehiscence, initial encounter (Primary Dx); Post-operative state Discharge Disposition: Discharge to home or self care 12/14/2024 10:14 PM CDT Anesthesia Event [facility] [address] [place] [phone] Shirlene Becker MD Gillespie, Julie Beth Fiona, MD 12/14/2024 8:00 PM CDT - 12/14/2024 10:15 PM CDT Surgery [facility] [address] [place] [address] Ghada Madison MD EXAM UNDER ANESTHESIA WITH VAGINAL CUFF REPAIR 12/12/2024 5:34 PM CDT - 12/13/2024 1:10 AM CDT Hospital Encounter [address] [phone] Ghada Madison MD Abnormal uterine bleeding (Primary Dx) Discharge Disposition: Discharge to home or self care 12/12/2024 Telephone [facility] Obstetrics and Gynecology [facility] 7th Floor [address] [place] [phone] Alonso Lugo RN Post-op 12/04/2024 11:00 AM CDT - 12/04/2024 3:10 PM CDT Surgery [facility] [address] [place] [address] Ghada Madison MD LAPAROSCOPIC TOTAL HYSTERECTOMY 12/04/2024 11:16 AM CDT Anesthesia Event [facility] [address] [place] [phone] Sayda Lao DO Montgomery, Andrea J., NP 12/04/2024 9:07 AM CDT - 12/04/2024 6:58 PM CDT Hospital Encounter [facility] [address] [place] [address] Ghada Madison MD Abnormal uterine bleeding; Adenomyosis [...] same. Assessment & Plan (08/25/2024 1:54 PM [employer] MERCHANDISING MANAGER): - Discussed that abnormal uterine bleeding and [...] surgery Assessment & Plan (07/02/2024 5:49 PM [employer] MERCHANDISING MANAGER): Abnormal uterine bleeding: - We discussed that [...] excess calories 1 08/27/2021 No diagnosis on Delmar I 05/25/2022 Morbid obesity 05/25/2022 GERD (gastroesophageal [...] on file Legal Sex Female 6:56 PM [employer] MERCHANDISING MANAGER Gender Identity Not on file Sexual Orientation [...] Read Routine (OP Routine) 07/17/2024 8:01 AM [employer] MERCHANDISING MANAGER Screening mammogram, encounter for HIGH RISK HPV DNA DETECTION WITH GENOTYPING Routine 07/02/2024 5:33 PM [employer] MERCHANDISING MANAGER Abnormal uterine bleeding from Last 3 Months [...] MD LAB BLOOD ORDERABLES Final Re sult [facility] Department [place] [address] * CBC without differential (01/14/2025 1:09 PM CDT) [facility] WBC 4.42 3.80 - 9.90 K/cumm Hgb 12.2 11.9 - 15.5 g/dL [facility] Hct 36.0 35.6 - 45.5 % [facility] Plt 219 150 - 400 K/cumm [facility] MPV 10.0 9.1 - 12.3 fL [facility] RBC 4.28 3.90 - 5.20 M/cumm [facility] MCV 84.1 81.3 - 96.4 fL [facility] MCH 28.5 27.1 - 33.3 pg [facility] MCHC 33.9 32.3 - 35.7 g/dL [facility] RDW CV 14.6 11.1 - 14.9 % [facility] RDW SD 45.0 35.7 - 48.1 fL [facility] NRBC abs 0.00 0.00 - 0.01 K/cumm [facility] Blood 01/14/2025 1:09 PM CDT 01/14/2025 1:38 PM CDT us Ghada Madison MD LAB BLOOD ORDERABLES Final Re sult [facility] Department [place] [address] * (ABNORMAL) Comprehensive metabolic panel (01/14/2025 1:09 PM CDT) [facility] Sodium 141 135 - 145 mmol/L Potassium, pl 4.1 3.3 - 4.9 mmol/L [facility] Chloride 107 97 - 110 mmol/L [facility] CO2 30 22 - 32 mmol/L [facility] Anion gap 4 2 - 15 mmol/L [facility] BUN 5(L) 6 - 25 mg/dL [facility] Creatinine 0.67 0.60 - 1.10 mg/dL [facility] Glucose 87 70 - 199 mg/dL [facility] Comment: Interpretive Data Fasting glucose >/= 126 [...] 2022. Calcium 9.5 8.5 - 10.3 mg/dL [facility] Bilirubin, total 0.5 0.1 - 1.2 mg/dL [facility] Protein, pl 7.6 6.5 - 8.5 g/dL [facility] Albumin 3.9 3.5 - 5.0 g/dL [facility] Alk phos 52 40 - 130 Units/L [facility] ALT 11 7 - 45 Units/L [facility] AST 14 10 - 45 Units/L [facility] Blood 01/14/2025 1:09 PM CDT 01/14/2025 1:38 PM CDT Ghada Madison MD LAB BLOOD ORDERABLES Final Re sult [facility] Department [place] [address] * CT Pelvis W Contrast (01/12/2025 3:52 [...] BLOOD ORDERABLES Final Result Performing Organization Address City/State/[facility] Co de Phone Number [facility] Department [place] [address] * (ABNORMAL) CBC without differential (12/17/2024 5:48 AM CDT) [facility] WBC 7.66 3.80 - 9.90 K/cumm Hgb 8.7(L) 11.9 - 15.5 g/dL [facility] Hct 26.1(L) 35.6 - 45.5 % [facility] Plt 411(H) 150 - 400 K/cumm [facility] MPV 9.3 9.1 - 12.3 fL [facility] RBC 2.99(L) 3.90 - 5.20 M/cumm [facility] MCV 87.3 81.3 - 96.4 fL [facility] MCH 29.1 27.1 - 33.3 pg [facility] MCHC 33.3 32.3 - 35.7 g/dL [facility] RDW CV 13.6 11.1 - 14.9 % [facility] RDW SD 42.1 35.7 - 48.1 fL [facility] NRBC abs 0.00 0.00 - 0.01 K/cumm [facility] Blood 12/17/2024 5:48 AM CDT 12/17/2024 6:17 AM CDT Rebeca Atkins MD LAB BLOOD ORDERABLES Final Result Performing Organization Address [facility]/ZIP Co de Phone Number [facility] Department [place] [address] * (ABNORMAL) Comprehensive metabolic panel (12/17/2024 5:48 AM CDT) [facility] Sodium 141 135 - 145 mmol/L Potassium, pl 3.8 3.3 - 4.9 mmol/L [facility] Chloride 104 97 - 110 mmol/L [facility] CO2 27 22 - 32 mmol/L [facility] Anion gap 10 2 - 15 mmol/L [facility] BUN 4(L) 6 - 25 mg/dL [facility] Creatinine 0.63 0.60 - 1.10 mg/dL [facility] Glucose 91 70 - 199 mg/dL [facility] Comment: Interpretive Data Fasting glucose >/= 126 [...] 2022. Calcium 8.7 8.5 - 10.3 mg/dL [facility] Bilirubin, total 0.9 0.1 - 1.2 mg/dL [facility] Protein, pl 7.1 6.5 - 8.5 g/dL [facility] Albumin 3.1(L) 3.5 - 5.0 g/dL [facility] Alk phos 53 40 - 130 Units/L [facility] ALT 7 7 - 45 Units/L [facility] AST 19 10 - 45 Units/L [facility] Blood 12/17/2024 5:48 AM CDT 12/17/2024 6:17 AM CDT us Rebeca Atkins MD LAB BLOOD ORDERABLES Final Result [facility] Department [place] [address] * eGFR (12/16/2024 4:46 AM CDT) eGFR [...] Atkins MD LAB BLOOD ORDERABLES Final Result [facility] Department [place] [address] * (ABNORMAL) CBC without differential (12/16/2024 4:46 AM CDT) WBC 7.34 3.80 - 9.90 K/cumm Hgb 7.6(L) 11.9 - 15.5 g/dL [facility] Hct 22.5(L) 35.6 - 45.5 % [facility] Plt 365 150 - 400 K/cumm [facility] MPV 9.3 9.1 - 12.3 fL [facility] RBC 2.60(L) 3.90 - 5.20 M/cumm [facility] MCV 86.5 81.3 - 96.4 fL [facility] MCH 29.2 27.1 - 33.3 pg [facility] MCHC 33.8 32.3 - 35.7 g/dL [facility] RDW CV 13.5 11.1 - 14.9 % [facility] RDW SD 42.2 35.7 - 48.1 fL [facility] NRBC abs 0.00 0.00 - 0.01 K/cumm [facility] Blood 12/16/2024 4:46 AM CDT 12/16/2024 5:48 AM CDT us Rebeca Atkins MD LAB BLOOD ORDERABLES Final Result [facility] Department [place] [address] * (ABNORMAL) Comprehensive metabolic panel (12/16/2024 4:46 AM CDT) Pathologist [facility] Sodium 141 135 - 145 mmol/L Potassium, pl 3.7 3.3 - 4.9 mmol/L [facility] Chloride 105 97 - 110 mmol/L [facility] CO2 29 22 - 32 mmol/L [facility] Anion gap 7 2 - 15 mmol/L [facility] BUN 6 6 - 25 mg/dL [facility] Creatinine 0.66 0.60 - 1.10 mg/dL [facility] Glucose 95 70 - 199 mg/dL [facility] Comment: Interpretive Data Fasting glucose >/= 126 [...] 2022. Calcium 8.4(L) 8.5 - 10.3 mg/dL [facility] Bilirubin, total 0.9 0.1 - 1.2 mg/dL [facility] Protein, pl 6.7 6.5 - 8.5 g/dL [facility] Albumin 3.0(L) 3.5 - 5.0 g/dL [facility] Alk phos 48 40 - 130 Units/L [facility] ALT 11 7 - 45 Units/L [facility] AST 18 10 - 45 Units/L [facility] Blood 12/16/2024 4:46 AM CDT 12/16/2024 5:48 AM CDT us Rebeca Atkins MD LAB BLOOD ORDERABLES Final Result NANCY Lala [facility] Department [place] [address] * [employer] (12/15/2024 3:57 PM [...] Atkins MD LAB BLOOD ORDERABLES Final Result [facility] Department [place] [address] * (ABNORMAL) CBC without differential (12/15/2024 4:49 AM CDT) WBC 7.79 3.80 - 9.90 K/cumm Hgb 7.2(L) 11.9 - 15.5 g/dL [facility] Hct 21.6(L) 35.6 - 45.5 % [facility] Plt 316 150 - 400 K/cumm [facility] MPV 9.5 9.1 - 12.3 fL [facility] RBC 2.50(L) 3.90 - 5.20 M/cumm [facility] MCV 86.4 81.3 - 96.4 fL [facility] MCH 28.8 27.1 - 33.3 pg [facility] MCHC 33.3 32.3 - 35.7 g/dL [facility] RDW CV 13.3 11.1 - 14.9 % [facility] RDW SD 41.3 35.7 - 48.1 fL [facility] NRBC abs 0.00 0.00 - 0.01 K/cumm [facility] Blood 12/15/2024 4:49 AM CDT 12/15/2024 6:43 AM CDT us Rebeca Atkins MD LAB BLOOD ORDERABLES Final Result [facility] Department [place] [address] * (ABNORMAL) Comprehensive metabolic panel (12/15/2024 4:49 AM CDT) Sodium 142 135 - 145 mmol/L Potassium, pl 3.6 3.3 - 4.9 mmol/L [facility] Chloride 105 97 - 110 mmol/L [facility] CO2 28 22 - 32 mmol/L [facility] Anion gap 9 2 - 15 mmol/L [facility] BUN 7 6 - 25 mg/dL [facility] Creatinine 0.72 0.60 - 1.10 mg/dL [facility] Glucose 94 70 - 199 mg/dL [facility] Comment: Interpretive Data Fasting glucose >/= 126 [...] 2022. Calcium 8.2(L) 8.5 - 10.3 mg/dL [facility] Bilirubin, total 1.2 0.1 - 1.2 mg/dL [facility] Protein, pl 6.6 6.5 - 8.5 g/dL [facility] Albumin 2.9(L) 3.5 - 5.0 g/dL [facility] Alk phos 46 40 - 130 Units/L [facility] ALT 8 7 - 45 Units/L [facility] AST 18 10 - 45 Units/L [facility] Blood 12/15/2024 4:49 AM CDT 12/15/2024 5:34 AM CDT us Rebeca Atkins MD LAB BLOOD ORDERABLES Final Result [facility] Department [place] [address] * (ABNORMAL) Aerobic and anaerobic culture and gram stain Abscess Vaginal (12/14/2024 11:20 PM CDT) Direct Specimen Exam Stain: Rare polymorphonuclear leukocytes seen. Few Gram Positive Bacilli Rare Gram Negative Bacilli Report Final Report: Moderate Escherichia coli Rare Finegoldia magna (.) [facility] Organism ESCHERICHIA COLI [facility] Organism FINEGOLDIA MAGNA [facility] Abscess (Vaginal) 12/14/2024 11:20 PM CDT 12/15/2024 8:38 AM CDT Narrative [facility] - 12/18/2024 10:27 AM CDT Vaginal cuff fluid collection Specimen received on an ESwab. Testing performed by [facility] ([phone]) Specimens submitted from normally sterile body sites [...] MICROBIOLOGY - GENERAL OR DERABLES Final Result [facility] Department [place] [address] * Blood culture Blood (12/14/2024 5:08 PM CDT) Report Final Report: No growth Blood 12/14/2024 5:08 PM CDT 12/14/2024 6:03 PM CDT Narrative [facility] - 12/19/2024 7:00 AM CDT Collection->Peripheral 1. [...] performance characteristics have been verified by the [facility]. For questions about this culture, contact the Microbiology Laboratory at [phone]. Interpretive data was last revised on 24. Rebeca Atkins MD LAB MICROBIOLOGY - NERAL ORDERABLES Final Result NANCY SOTELO D[facility] Department [place] [address] * Blood culture Blood (12/14/2024 5:08 PM CDT) Report Final Report: No growth Blood 12/14/2024 5:08 PM CDT 12/14/2024 6:03 PM CDT Narrative [facility] - 12/19/2024 7:00 AM CDT Collection->Peripheral 1. [...] performance characteristics have been verified by the [facility]. For questions about this culture, contact the Microbiology Laboratory at [phone]. Interpretive data was last revised on 24. Rebeca Atkins MD LAB MICROBIOLOGY - NERAL ORDERABLES Final Result Performing Organization Address City/[facility]/ZIP Co de Phone Number [facility] Department [place] [address] * (ABNORMAL) Urinalysis reflex to microscopic and culture Urine, clean voided (12/14/2024 3:34 PM CDT) Color, ur Yellow Yellow Clarity, ur Cloudy(A) Clear [facility] Specific gravity, ur 1.018 1.003 - 1.030 [facility] pH, urine 6.5 [facility] Comment: Interpretive Data U rine pH is affected by diet, medications, systemic acid-base disturbances, and renal tubular function. pH may affect urinary stone formation. For example, urine pH below 6.0 may help reduce the tendency for calcium phosphate stones and pH greater than 6.0 may reduce the tendency for uric acid stone formation. Source: [facility] [employer] Current Interpretive Data was last revised on 2017 Protein, ur ql Trace Negative [facility] Glucose, ur ql Negative Negative [facility] Ketones, ur Negative Negative [facility] Bilirubin, ur Negative Negative [facility] Blood, ur Negative Negative [facility] Urobilinogen, ur >=8.0(A) <2.0 mg/dL [facility] Nitrite, ur Negative Negative [facility] Leukocyte esterase, ur 2+(A) Negative [facility] UA reflex comment Reflex to microscopic UA will be performed. [facility] Urine, clean voided 12/14/2024 3:34 PM CDT 12/14/2024 3:43 PM CDT Rebeca Atkins MD LAB MICROBIOLOGY - [facility] ORDERABLES Final Result [facility] Department [place] [address] * Urinalysis, microscopic only (12/14/2024 3:34 PM CDT) WBC, ur 0-5 0 - 5 /HPF RBC, ur 0-2 0 - 2 /HPF [facility] Culture Reflex Comment Reflex conditions for urine culture (WBC >10) not met. [facility] Urine, clean voided 12/14/2024 3:34 PM CDT 12/14/2024 3:43 PM CDT Rebeca Atkins MD LAB URINE ORDERABLES Final Result [facility] Department [place] [address] * Lactate (12/14/2024 1:39 PM CDT) Lactate 1.0 0.7 - 2.0 mmol/L Blood 12/14/2024 1:39 PM CDT 12/14/2024 1:55 PM CDT Rebeca Atkins MD LAB BLOOD ORDERABLES Final Result Performing Organization Address [facility] Co de Phone Number [facility] Department [place] [address] * eGFR (12/14/2024 1:39 PM CDT) eGFR [...] Atkins MD LAB BLOOD ORDERABLES Final Result [facility] Department [place] [address] * (ABNORMAL) CBC without differential (12/14/2024 1:39 PM CDT) WBC 9.39 3.80 - 9.90 K/cumm Hgb 8.9(L) 11.9 - 15.5 g/dL [facility] Hct 26.6(L) 35.6 - 45.5 % [facility] Plt 392 150 - 400 K/cumm [facility] MPV 9.0(L) 9.1 - 12.3 fL [facility] RBC 3.05(L) 3.90 - 5.20 M/cumm [facility] MCV 87.2 81.3 - 96.4 fL [facility] MCH 29.2 27.1 - 33.3 pg [facility] MCHC 33.5 32.3 - 35.7 g/dL [facility] RDW CV 13.4 11.1 - 14.9 % [facility] RDW SD 41.7 35.7 - 48.1 fL [facility] NRBC abs 0.00 0.00 - 0.01 K/cumm [facility] Blood 12/14/2024 1:39 PM CDT 12/14/2024 1:55 PM CDT us Rebeca Atkins MD LAB BLOOD ORDERABLES Final Result [facility] [place] [address] * Type and screen (12/14/2024 1:39 PM CDT) Maria Alejandra, indirect Negative ABO Rh O Positive [facility] Blood 12/14/2024 1:39 PM CDT 12/14/2024 1:48 PM CDT Narrative [facility] - 12/14/2024 2:42 PM CDT Has the patient had Daratumumab or Isatuximab in the past 6 months?->Unknown Rebeca Atkins MD LAB BLOOD BANK TEST O RDERABLES Final Result [facility] Department [place] [address] * (ABNORMAL) Comprehensive metabolic panel (12/14/2024 1:39 PM CDT) Sodium 138 135 - 145 mmol/L Potassium, pl 3.7 3.3 - 4.9 mmol/L [facility] Chloride 104 97 - 110 mmol/L [facility] CO2 26 22 - 32 mmol/L [facility] Anion gap 8 2 - 15 mmol/L [facility] BUN 6 6 - 25 mg/dL [facility] Creatinine 0.73 0.60 - 1.10 mg/dL [facility] Glucose 107 70 - 199 mg/dL [facility] Comment: Interpretive Data Fasting glucose >/= 126 [...] 2022. Calcium 8.7 8.5 - 10.3 mg/dL [facility] Bilirubin, total 1.8(H) 0.1 - 1.2 mg/dL [facility] Protein, pl 7.7 6.5 - 8.5 g/dL [facility] Albumin 3.3(L) 3.5 - 5.0 g/dL [facility] Alk phos 51 40 - 130 Units/L [facility] ALT 11 7 - 45 Units/L [facility] AST 28 10 - 45 Units/L [facility] Blood 12/14/2024 1:39 PM CDT 12/14/2024 1:55 PM CDT us Rebeca Atkins MD LAB BLOOD ORDERABLES Final Result [facility] Department [place] [address] * CT Chest PE (CTA) Abdomen Pelvis [...] MD LAB BLOOD ORDERABLES Final Re sult [facility] Department [place] [address] * (ABNORMAL) CBC without differential (12/12/2024 7:32 PM CDT) WBC 10.02(H) 3.80 - 9.90 K/cumm Hgb 9.2(L) 11.9 - 15.5 g/dL [facility] Hct 27.3(L) 35.6 - 45.5 % [facility] Plt 412(H) 150 - 400 K/cumm [facility] MPV 9.1 9.1 - 12.3 fL [facility] RBC 3.12(L) 3.90 - 5.20 M/cumm [facility] MCV 87.5 81.3 - 96.4 fL [facility] MCH 29.5 27.1 - 33.3 pg [facility] MCHC 33.7 32.3 - 35.7 g/dL [facility] RDW CV 13.1 11.1 - 14.9 % [facility] RDW SD 40.2 35.7 - 48.1 fL [facility] NRBC abs 0.00 0.00 - 0.01 K/cumm [facility] Blood 12/12/2024 7:32 PM CDT 12/12/2024 7:50 PM CDT Ghada Madison MD LAB BLOOD ORDERABLES Final Re sult Performing Organization Address [facility] de Phone Number [facility] [place] [address] * (ABNORMAL) Hepatic function panel (12/12/2024 7:32 PM CDT) Bilirubin, total 2.1(H) 0.1 - 1.2 mg/dL Bilirubin, direct 0.4(H) 0.1 - 0.3 mg/dL [facility] Protein, pl 8.0 6.5 - 8.5 g/dL [facility] Albumin 3.9 3.5 - 5.0 g/dL [facility] Alk phos 49 40 - 130 Units/L [facility] ALT 13 7 - 45 Units/L [facility] AST 50(H) 10 - 45 Units/L [facility] Blood 12/12/2024 7:32 PM CDT 12/12/2024 7:49 PM CDT Ghada Madison MD LAB BLOOD ORDERABLES Final Re sult Performing Organization Address [facility] de Phone Number [facility] [place] [address] * Basic metabolic panel (12/12/2024 7:32 PM CDT) Sodium 141 135 - 145 mmol/L Potassium, pl 3.6 3.3 - 4.9 mmol/L [facility] Chloride 102 97 - 110 mmol/L [facility] CO2 29 22 - 32 mmol/L [facility] Anion gap 10 2 - 15 mmol/L [facility] BUN 12 6 - 25 mg/dL [facility] Creatinine 0.73 0.60 - 1.10 mg/dL [facility] Glucose 94 70 - 199 mg/dL [facility] Comment: Interpretive Data Fasting glucose >/= 126 [...] 2022. Calcium 9.5 8.5 - 10.3 mg/dL [facility] Blood 12/12/2024 7:32 PM CDT 12/12/2024 7:49 PM CDT Ghada Madison MD LAB BLOOD ORDERABLES Final Re sult [facility] Department [place] [address] * (ABNORMAL) POCT urinalysis (Clinitek) (12/12/2024 6:01 PM CDT) Color, ur, POC Kerry(A) Yellow Clarity, UA, POC Clear Clear [facility] Glucose, ur, POC Negative Negative [facility] Bilirubin, ur, POC Negative Negative [facility] Ketones, ur, POC Negative Negative [facility] Specific gravity, ur, POC 1.010 1.010 - 1.025 [facility] Blood, ur, POC Trace(A) Negative [facility] pH, ur, POC 6.5 [facility] Comment: Interpretive Data Urine pH is affected by diet, medications, systemic acid-base disturbances, and renal tubular function. pH may affect urinary stone formation. For example, urine pH below 6.0 may help reduce the tendency for calcium phosphate stones and pH greater than 6.0 may reduce the tendency for uric acid stone formation. Source: [employer]. Last Revised Date: 08-16-2017 Protein, ur, POC 1+(A) Negative [facility] Urobilinogen, ur, POC 2.0 mg/dL(A) mg/dL [facility] Nitrites, ur, POC Negative Negative [facility] Leukocyte esterase, ur, POC Negative Negative [facility] Urine 12/12/2024 6:01 PM CDT 12/12/2024 6:01 PM CDT Ghada Madison MD LAB POCT ORDERABLES - DEVICE Final Result [facility] Department [place] [address] * Surgical pathology (12/04/2024 1:44 PM CDT) Tissue (Peritoneal Biopsy) 12/04/2024 1:44 PM CDT Tissue specimen (specimen) (Uterus with/without tubes & ovaries, Non-neoplastic) 12/04/2024 2:32 PM CDT Tissue specimen (specimen) (Peritoneal Biopsy) 12/04/2024 2:40 PM CDT Narrative PATHOLOGY [facility] - 12/15/2024 7:45 PM CDT EPIC results best viewed via link to PDF [facility] Rizwana Carrasco [facility] [place] [address] Note to Patients: This report may contain [...] Gender: F : 1975 (Age: 49) Address: [address] [place] [id number] [facility] #: [id number] Taken:12/04/2024 Received:12/04/2024 Reported: 12/15/2024 Patient Type: [facility] Service: Surgery Location: [facility] OR [facility] Physician(s): Edy Farley MD Diagnosis: A. Peritoneum, [...] tubes. Submitted as follows. Jar 3. B1 Governor Assembler Hydraulic anterior cervix, full thickness B2-B3 Governor Assembler Hydraulic anterior endomyometrium, full thickness bisected B4 Governor Assembler Hydraulic posterior cervix, full thickness B5-B6 Governor Assembler Hydraulic posterior endomyometrium, full thickness bisected B7-B9 Governor Assembler Hydraulic myometrial nodules B10 Governor Assembler Hydraulic right adnexal soft tissue nodule, 2 sections B11 Entire fimbriae and provider service representative fallopian tube 1 B12 Entire fimbriae and provider service representative fallopian tube 2 C. Labeled left [...] Surgical Pathology and Flow Cytometry Departments at [facility] as part of an ongoing quality assurance consultant program and in compliance with federally mandated [...] Surgical Pathology and Flow Cytometry Departments of [facility]. It has not been cleared or approved by the [place]. S. Food and Drug Administration. IMAGES AND SCANNED DOCUMENTS, IF INCLUDED, ONLY VIEWABLE IN PDF VERSION OF REPORT Ghada Madison MD LAB PATHOLOGY ORDERABLES Jory perez Result PATHOLOGY [facility] 3rd Floor [place], [place] [phone] * IN AN ELECTIVE ENDOTRACHEAL AIRWAY, IN AN PROCEDURE PLACEHOLDER (12/04/2024 11:51 AM CDT) Mihir Ferrer CRNA - 12/04/2024 11:51 AM CDT Mihir Stark CRNA 12/04/2024 11:51 AM Airway Patient location: OR Urgency: elective Indications for airway management: anesthesia Difficult airway: no Staff: Supervising provider: Sayda Lao DO Placed by: RIBBON INKER: Mihir Stark CRNA Emergent airway documentation: Risks [...] Alejandra, indirect Negative ABO Rh O Positive [facility] Blood 12/04/2024 9:57 AM CDT 12/04/2024 10:16 AM CDT [facility]ative [facility] - 12/04/2024 11:12 AM CDT Has the patient had Daratumumab or Isatuximab in the past 6 months?->Unknown us Belinda Seth EXCHANGE CONSULTANT LAB BLOOD BANK TEST ORDERA BLES Final Result [facility] Department [place] [address] * Screening Mammogram Bilateral W Santos (07/17/2024 8:01 AM ECOMMERCE MERCHANDISING MANAGER) Anatomical Region Laterality Modality Breast Bilateral Mammography Narrative 07/17/2024 3:52 PM ECOMMERCE MERCHANDISING MANAGER 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 Views obtained: bilateral craniocaudal and bilateral mediolateral oblique. Computer Aided Detection was performed. Mammogram Findings: The present examination has been compared to a prior imaging study performed at [facility] on 12/29/2020. There are scattered areas of [...] to a prior imaging study performed at [facility] on 12/29/2020. There are scattered areas of fibroglandular density. There is no suspicious abnormality in either breast. Impression: There is no mammographic evidence of malignancy. Annual screening mammography is recommended. OVERALL FINAL ASSESSMENT: BI-RADS CATEGORY 1: Negative. us Self Screening Mammogram IMG MAMMO PROCEDURES Fi nal Result * (ABNORMAL) High Risk HPV DNA Detection with Genotyping (Molecular component) (07/02/2024 5:33 PM ECOMMERCE MERCHANDISING MANAGER) HPV HR 16 Not Detected Not Detected [facility] HPV HR 18 Not Detected Not Detected [facility] HPV HR Non 16/18 Detected(A) Not Detected [facility] Comment: Interpretive Data Nucleic acid amplification for [...] this test have been verified by the [facility] Molecular Infectious Disease laboratory. Correlate with separately reported cytology results, as applicable. Interpretive data last revised 23 Endocervical 07/02/2024 5:33 PM ECOMMERCE MERCHANDISING MANAGER 07/03/2024 8:49 AM ECOMMERCE MERCHANDISING MANAGER Narrative [facility] - 07/04/2024 8:34 PM ECOMMERCE MERCHANDISING MANAGER Clinical history and diagnosis->Routine screening pap smear Number of vials->1 Testing type->Screening Last menstrual period (date if known)->unknown Ghada Madison MD LAB BODY FLUIDS AND STOOLS OR DERABLES Final Result Performing Organization Address City/State/[facility] Co de Phone Number [facility] Department [place] [address] [facility] from Last 3 Months or Most Recently Relevant to Health [place] [address] [place] [address] [place] [address] LOCAL PLUS Advance Directives For more information, please contact: [phone] * Full Code (Latest Code Status on File) Date Activated Date Inactivated Comments 12/14/2024 2:07 PM 12/17/2024 6:52 PM * Full Code Date Activated Date Inactivated Comments 06/27/2022 11:59 AM 06/28/2022 8:30 PM Care Teams Family Law Paralegal Relationship Specialty Start Date End Date Ignacia Moran MD PCP - General Family Medicine 04/14/22
--- OUTSIDE RECORDS SUMMARY | 2025-03-06 09:35 | XMS_ITS | Encounter Summary ---
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
[2025-03-06] MEDS: HYDROcodone/acetaminophen (*CRX) 5-325 MG TABLET 1 TAB PO (09:43)
== END 2025-03-06 11:01 | disposition home or self-care (01) ==
PROVIDERS: Emergency Provider Registered Nurse; PCP Emergency Medicine
DX: S06.0X0A Concussion without loss of consciousness, initial encounter (principal); S02.2XXA Fracture of nasal bones, initial encounter for closed fracture; I10 Essential (primary) hypertension; Z90.710 Acquired absence of both cervix and uterus; Z79.899 Other long term (current) drug therapy; W51.XXXA Accidental striking against or bumped into by another person, initial encounter
CPT/HCPCS: 70450; 70486; 72125; 99284; A9270